=== PATIENT | female | born 1960 | race African-American/Black ===

== ENCOUNTER 2017-08-21 18:36 | Emergency (ER) | payer MEDICARE, OTHER ==
[~2017-08-21] VITALS: Ht 177.8 cm; Wt 100.0 kg
[~2017-08-21 18:36] MED LIST: ADV100 IH; ALBU8.5H8 IH; AMLO-512 PO; ESZO3 PO; FENT1PAT4 TD; GABA-531 PO; LEVE500T53 PO; OMEP20 PO; PREM3 PO
[2017-08-21] MEDS ORDERED: MORP10CA8 PO (18:53)
[2017-08-21] MEDS ORDERED: HYDR2I SQ (18:57)
[2017-08-21] MEDS ORDERED: FENT-76 SQ (18:57)
[2017-08-21] MEDS ORDERED: METHOCARBAMOL 500 MG TABLET PO ONE (20:00)
[2017-08-21 20:02] VITALS: BP 156/78
== END 2017-08-21 20:49 | disposition home or self-care (01) ==
LOC: EMS 18:36
DX: M54.2 Cervicalgia (principal); I10 Essential (primary) hypertension; I25.2 Old myocardial infarction; K21.9 Gastro-esophageal reflux disease without esophagitis; F17.210 Nicotine dependence, cigarettes, uncomplicated; Z88.5 Allergy status to narcotic agent
CPT/HCPCS: 99283

== ENCOUNTER 2021-10-25 13:09 | Emergency (ER) | payer MEDICARE, OTHER ==
[~2021-10-25] VITALS: Ht 177.8 cm; Wt 118.2 kg
[~2021-10-25 13:09] MED LIST changes: -ADV100 IH; +AMLO-258 PO; -AMLO-512 PO; +FENT-76 SQ; -FENT1PAT4 TD; +FLUT1DIS4 IH; +GABA-1181 PO; -GABA-531 PO; +HYDR2I SQ; +LEVE500T20 PO; -LEVE500T53 PO; +MORP10CA8 PO
[2021-10-25 13:41] VITALS: BP 149/87
[2021-10-25] MEDS ORDERED: OXYC-490 PO (15:38)
[2021-10-25] MEDS ORDERED: PRED-554 PO (15:42)
[2021-10-25] MEDS ORDERED: MOXI3DRO27 OD (15:43)
== END 2021-10-25 16:02 | disposition home or self-care (01) ==
LOC: EMS 13:11
DX: H10.89 Other conjunctivitis (principal); H10.11 Acute atopic conjunctivitis, right eye; F41.9 Anxiety disorder, unspecified; M19.90 Unspecified osteoarthritis, unspecified site; F31.9 Bipolar disorder, unspecified; I10 Essential (primary) hypertension; M41.9 Scoliosis, unspecified; F17.210 Nicotine dependence, cigarettes, uncomplicated; Z86.2 Personal history of diseases of the blood and blood-forming organs and certain disorders involving the immune mechanism; Z87.19 Personal history of other diseases of the digestive system; Z86.79 Personal history of other diseases of the circulatory system; Z86.69 Personal history of other diseases of the nervous system and sense organs; Z87.39 Personal history of other diseases of the musculoskeletal system and connective tissue; Z98.51 Tubal ligation status; Z96.641 Presence of right artificial hip joint; Z96.651 Presence of right artificial knee joint
CPT/HCPCS: 99283; Z7502

== ENCOUNTER 2021-12-13 08:04 | Day surgery (SDC) | payer MEDICARE, OTHER ==
[2021-12-12 12:35] LABS: COVID AG,FIA SOURCE NASOPHARYNGEAL
[~2021-12-13] VITALS: Ht 177.8 cm; Wt 118.2 kg
[~2021-12-13 08:04] MED LIST changes: -ALBU8.5H8 IH; +AMLO-257 PO; -AMLO-258 PO; +APIX5TAB PO; -ESZO3 PO; -FENT-76 SQ; +FLUT1BLS10 IH; -FLUT1DIS4 IH; -GABA-1181 PO; +GUAIF10 PO; -HYDR2I SQ; +IPRA4AER IH; -LEVE500T20 PO; +LEVE750T10 PO; +MONT-35 PO; -MORP10CA8 PO; +NICO-703 TD; -OMEP20 PO; +OXYC-618 PO; +PREG75CA75 PO; -PREM3 PO; +SODIUM CHLORIDE 0.9% 1,000 ML IV ONE
[2021-12-13] MEDS ORDERED: LIDOCAINE/PF 2% 5 ML VIAL IM ONE (08:05)
[2021-12-13] MEDS ORDERED: PROPOFOL 1% 20 ML VIAL IVP ONE (08:05)
[2021-12-13] MEDS ORDERED: PRED-554 PO (08:18)
[2021-12-13] MEDS ORDERED: MONT-40 PO (09:11)
[2021-12-13] MEDS ORDERED: AMLO5TAB66 PO (09:11)
[2021-12-13] MEDS ORDERED: APIX5TAB PO (09:12)
[2021-12-13] MEDS ORDERED: OXYGEN THERAPY IH SCH (20:00)
[2021-12-19] MEDS ORDERED: IPRA4AER IH (12:09)
[2022-02-09] MEDS ORDERED: APIX5TAB PO (13:59)
[2022-02-11] MEDS ORDERED: LEVE500T20 PO (14:32)
[2022-02-11] MEDS ORDERED: PRED-554 PO ×2 (14:32)
[2022-02-11] MEDS ORDERED: OXCA300T57 PO (14:32)
[2022-02-11] MEDS ORDERED: DILT30TA3 PO (14:32)
[2022-02-11] MEDS ORDERED: PRED-549 PO (14:32)
== END 2021-12-13 11:15 | disposition home or self-care (01) ==
LOC: SURGERY 08:04
PROVIDERS: ATTEND Specialist
DX: R94.8 Abnormal results of function studies of other organs and systems (principal); K57.30 Diverticulosis of large intestine without perforation or abscess without bleeding; K63.5 Polyp of colon; Z79.899 Other long term (current) drug therapy; Z98.890 Other specified postprocedural states; J44.9 Chronic obstructive pulmonary disease, unspecified; Z86.711 Personal history of pulmonary embolism; Z90.710 Acquired absence of both cervix and uterus; M19.90 Unspecified osteoarthritis, unspecified site; Z80.0 Family history of malignant neoplasm of digestive organs
CPT/HCPCS: 88305; 93005; J2704; J3490

== ENCOUNTER → 2021-12-19 | Outpatient (CLI) | payer MEDICARE, OTHER ==
[~2021-12-19] VITALS: Ht 177.8 cm; Wt 113.5 kg
[~2021-12-19] MED LIST changes: -AMLO-257 PO; +AMLO5TAB66 PO; -GUAIF10 PO; -MONT-35 PO; +MONT-40 PO; -OXYC-618 PO; -SODIUM CHLORIDE 0.9% 1,000 ML IV ONE
[2021-12-19 13:35] VITALS: BP 140/68
== END | disposition home or self-care (01) ==
LOC: SRCNTR 11:38
PROVIDERS: ATTEND Internal Medicine
DX: I10 Essential (primary) hypertension (principal); Z09 Encounter for follow-up examination after completed treatment for conditions other than malignant neoplasm; J44.9 Chronic obstructive pulmonary disease, unspecified; M54.50 Low back pain, unspecified; I48.20 Chronic atrial fibrillation, unspecified; J96.90 Respiratory failure, unspecified, unspecified whether with hypoxia or hypercapnia; F17.200 Nicotine dependence, unspecified, uncomplicated; Z99.81 Dependence on supplemental oxygen
CPT/HCPCS: G0463; Z7500

== ENCOUNTER → 2022-02-05 | Outpatient (CLI) | payer MEDICARE, OTHER ==
[2022-02-05 10:07] VITALS: BP 141/82
== END | disposition home or self-care (01) ==
LOC: SRCNTR 09:36
PROVIDERS: ATTEND Internal Medicine
DX: J44.9 Chronic obstructive pulmonary disease, unspecified (principal); I10 Essential (primary) hypertension; E66.9 Obesity, unspecified; I48.91 Unspecified atrial fibrillation; G89.4 Chronic pain syndrome; J96.91 Respiratory failure, unspecified with hypoxia; F17.200 Nicotine dependence, unspecified, uncomplicated; Z99.81 Dependence on supplemental oxygen
CPT/HCPCS: G0463; Z7500

== ENCOUNTER 2022-03-02 11:08 | Emergency (ER) | payer MEDICARE, OTHER ==
[~2022-03-02] VITALS: Ht 177.8 cm; Wt 120.5 kg
[~2022-03-02 11:08] MED LIST changes: -AMLO5TAB66 PO; +DILT30TA3 PO; +LEVE500T20 PO; -LEVE750T10 PO; +OXCA300T57 PO; +PRED-549 PO; +PRED-554 PO
[2022-03-02 14:29] LABS: BASOPHILS % (AUTO) 0.1 % (0.0-2.0); EOSINOPHILS % (AUTO) 0 % (1.0-6.0); HEMATOCRIT 35.2 % (36-46); HEMOGLOBIN 11.6 g/dL (12.0-16.0); LYMPHOCYTES # (AUTO) 0.9 K/uL (1.0-4.8); LYMPHOCYTES % (AUTO) 9.6 % (22.0-44.0); MEAN CORPUSCULAR HEMOGLOBIN 30.7 pg (26.0-34.0); MEAN CORPUSCULAR HGB CONC 32.9 G/dL (31.0-37.0); MEAN CORPUSCULAR VOLUME 93 fL (80-100); MONOCYTES # (AUTO) 0.4 K/uL (0.1-1.0); NEUTROPHILS # (AUTO) 8.2 K/uL (1.8-7.7); PLATELET COUNT (AUTO) 282 K/uL (150-450); RED BLOOD CELL COUNT(AUTO) 3.78 MIL/uL (4.00-5.20); RED CELL DISTRIBUTION WIDTH 14.6 % (11.5-14.5)
[2022-03-02 14:33] LABS: NEUTROPHILS % (AUTO) 86.3 % (40.0-70.0)
[2022-03-02 14:40] LABS: ANION GAP 8 mmol/L (8-16); CALCIUM, TOTAL 9.6 mg/dL (8.8-10.5); CARBON DIOXIDE 26 mmol/L (22-29); CHLORIDE 108 mmol/L (98-107); GLUCOSE,RANDOM 126 mg/dL (70-110); POTASSIUM 3.7 mmol/L (3.5-5.1); SODIUM SERUM 142 mmol/L (136-145); UREA NITROGEN, BLOOD 20 mg/dL (7-18)
[2022-03-02 14:42] LABS: GLOMERULAR FILTR. RATE CALC > 60 mL/min (>60)
[2022-03-02 14:45] LABS: ALANINE AMINOTRANSFERASE 24 U/L (12-78); ALBUMIN 3.4 g/dL (3.4-5.0); ALKALINE PHOSPHATASE 60 U/L (46-116); ASPARTATE AMINOTRANSFERASE 14 U/L (15-37); BILIRUBIN,TOTAL 0.3 mg/dL (0.1-1.0); TOTAL PROTEIN, SERUM 6.6 g/dL (6.4-8.2)
[2022-03-02 15:30] VITALS: BP 147/79
[2022-03-02 15:42] LABS: APPEARANCE,URINE CLEAR (CLEAR); BILIRUBIN,URINE NEGATIVE (NEGATIVE); GLUCOSE, URINE (UA) NEGATIVE (NEGATIVE); KETONES,URINE NEGATIVE (NEGATIVE); LEUKOCYTE ESTERASE ,URINE NEGATIVE (NEGATIVE); NITRATE,URINE NEGATIVE (NEGATIVE); OCCULT BLOOD,URINE NEGATIVE (NEGATIVE); PROTEIN,URINE NEGATIVE (NEGATIVE); SPECIFIC GRAVITIY, URINE 1.014 (1.003-1.030); UROBILINOGEN,URINE <=1.0 mg/dL (<=1.0)
== END 2022-03-02 16:06 | disposition home or self-care (01) ==
LOC: EMS 11:13
DX: R30.0 Dysuria (principal); F31.9 Bipolar disorder, unspecified; F41.9 Anxiety disorder, unspecified; F17.210 Nicotine dependence, cigarettes, uncomplicated; I10 Essential (primary) hypertension; J44.9 Chronic obstructive pulmonary disease, unspecified; K21.9 Gastro-esophageal reflux disease without esophagitis; Z90.89 Acquired absence of other organs; Z96.641 Presence of right artificial hip joint; Z96.651 Presence of right artificial knee joint
CPT/HCPCS: 80053; 81003; 85025; 87491; 87591; 99283; 99284

== ENCOUNTER → 2022-03-06 | Outpatient (CLI) | payer MEDICARE, OTHER ==
[2022-03-06 13:41] VITALS: BP 135/86
== END | disposition home or self-care (01) ==
LOC: SRCNTR 11:27
PROVIDERS: ATTEND Internal Medicine
DX: J44.9 Chronic obstructive pulmonary disease, unspecified (principal); G47.33 Obstructive sleep apnea (adult) (pediatric); R09.02 Hypoxemia; G40.909 Epilepsy, unspecified, not intractable, without status epilepticus
CPT/HCPCS: G0463; Z7500

== ENCOUNTER → 2022-03-22 | Outpatient (CLI) | payer MEDICARE, OTHER ==
[~2022-03-22] MED LIST changes: +ALBU2TAB42 PO; +AMIT10TA6 PO; +AMLO-257 PO; +ATOR40TA71 PO; +CEPH-558 PO; +FLUT1BLS3 IH; +GABA-1181 PO; +LEVE750T10 PO; +MELO-106 PO; +OXYC-38 PO; +OXYC-618 PO; +PHEN-846 PO; +SEMA7TAB2 PO; +TOPI50TA24 PO
[2022-03-22 11:00] VITALS: BP 141/72
== END | disposition home or self-care (01) ==
LOC: SRCNTR 10:27
PROVIDERS: ATTEND Hospitalist
DX: R07.9 Chest pain, unspecified (principal); I10 Essential (primary) hypertension; J44.9 Chronic obstructive pulmonary disease, unspecified; E66.9 Obesity, unspecified; M19.90 Unspecified osteoarthritis, unspecified site; R56.9 Unspecified convulsions
CPT/HCPCS: 93005; G0463

== ENCOUNTER → 2022-05-15 | Outpatient (CLI) | payer MEDICARE, OTHER ==
[~2022-05-15] VITALS: Ht 177.8 cm; Wt 123.0 kg
[~2022-05-15] MED LIST changes: -DILT30TA3 PO; -FLUT1BLS10 IH; -IPRA4AER IH; -LEVE500T20 PO; -OXCA300T57 PO; -OXYC-38 PO; -PRED-549 PO; -PREG75CA75 PO
[2022-05-15 14:57] VITALS: BP 122/75
== END | disposition home or self-care (01) ==
LOC: SRCNTR 14:39
PROVIDERS: ATTEND Internal Medicine
DX: Z09 Encounter for follow-up examination after completed treatment for conditions other than malignant neoplasm (principal); R07.89 Other chest pain; I10 Essential (primary) hypertension; J44.9 Chronic obstructive pulmonary disease, unspecified; K21.9 Gastro-esophageal reflux disease without esophagitis; Z86.711 Personal history of pulmonary embolism; F41.9 Anxiety disorder, unspecified; E78.5 Hyperlipidemia, unspecified; R05.8 Other specified cough; Z99.81 Dependence on supplemental oxygen
CPT/HCPCS: G0463; Z7500

== ENCOUNTER 2022-05-28 10:51 | Inpatient (IN) | payer MEDICARE, OTHER ==
[~2022-05-28] VITALS: Ht 170.2 cm; Wt 126.9 kg
[~2022-05-28 10:51] MED LIST changes: -APIX5TAB PO; -CEPH-558 PO; -NICO-703 TD; -PHEN-846 PO; -PRED-554 PO; -SEMA7TAB2 PO
[2022-05-28] MEDS ORDERED: LORazepam 2 MG/ML VIAL ONE (10:57)
[2022-05-28] MEDS ORDERED: SODIUM CHLORIDE 0.9% 1,000 ML IV ONE (11:15)
[2022-05-28] MEDS ORDERED: LORazepam 2 MG/ML VIAL IVP ONE (11:15)
[2022-05-28] MEDS ORDERED: LevETIRAcetam 1,000 MG in DEXTROSE 5%-WATER 100 ML IV ONE (11:15)
[2022-05-28 11:20] LABS: BASOPHILS % (AUTO) 0.8 % (0.0-2.0); EOSINOPHILS % (AUTO) 4.1 % (1.0-6.0); HEMATOCRIT 37.2 % (36-46); LYMPHOCYTES # (AUTO) 1.9 K/uL (1.0-4.8); LYMPHOCYTES % (AUTO) 31.5 % (22.0-44.0); MEAN CORPUSCULAR HEMOGLOBIN 30.1 pg (26.0-34.0); MEAN CORPUSCULAR HGB CONC 32.3 G/dL (31.0-37.0); MEAN CORPUSCULAR VOLUME 93 fL (80-100); MONOCYTES # (AUTO) 0.6 K/uL (0.1-1.0); MONOCYTES % (AUTO) 9.2 % (2.0-9.0); NEUTROPHILS # (AUTO) 3.3 K/uL (1.8-7.7); NEUTROPHILS % (AUTO) 54.4 % (40.0-70.0); PLATELET COUNT (AUTO) 252 K/uL (150-450); RED BLOOD CELL COUNT(AUTO) 3.98 MIL/uL (4.00-5.20)
[2022-05-28 11:34] LABS: PROTHROMBIN TIME 10.6 SEC (9.4-11.6)
[2022-05-28 11:37] LABS: ANION GAP 10 mmol/L (8-16); CALCIUM, TOTAL 9.1 mg/dL (8.8-10.5); CARBON DIOXIDE 26 mmol/L (22-29); CHLORIDE 108 mmol/L (98-107); CREATININE 0.98 mg/dL (0.60-1.30); GLOMERULAR FILTR. RATE CALC > 60 mL/min (>60); GLUCOSE,RANDOM 101 mg/dL (70-110); POTASSIUM 3.2 mmol/L (3.5-5.1); SODIUM SERUM 144 mmol/L (136-145); UREA NITROGEN, BLOOD 18 mg/dL (7-18)
[2022-05-28 11:43] LABS: ALANINE AMINOTRANSFERASE 23 U/L (12-78); ALBUMIN 3.4 g/dL (3.4-5.0); ALKALINE PHOSPHATASE 67 U/L (46-116); ASPARTATE AMINOTRANSFERASE 20 U/L (15-37); BILIRUBIN,TOTAL 0.4 mg/dL (0.1-1.0); TOTAL PROTEIN, SERUM 6.7 g/dL (6.4-8.2)
[2022-05-28] MEDS ORDERED: POTASSIUM CHL 10 MEQ/WATER 50 ML IV PRN (15:30)
[2022-05-28] MEDS ORDERED: POTASSIUM CHLORIDE 20 MEQ ER TABLET PO PRN (15:30)
[2022-05-28 18:58] VITALS: BP 155/83
[2022-05-28] MEDS ORDERED: ALBUTEROL SULFATE 2.5 MG/0.5 ML NEB SOLUTION NEB PRN ×2 (19:00→19:15)
[2022-05-28] MEDS ORDERED: ACETAMINOPHEN 325 MG TABLET PO PRN (19:15)
[2022-05-28] MEDS ORDERED: HYDROCODONE/ACETAMINOPHEN 5-325 MG TABLET PO PRN (19:15)
[2022-05-28] MEDS ORDERED: MORPHINE SULFATE 2 MG/ML SYRINGE IVP PRN (19:15)
[2022-05-28] MEDS ORDERED: OxyCODONE HCL/ACETAMINOPHEN 10-325 MG TABLET PO PRN (19:15)
[2022-05-28] MEDS ORDERED: MAGNESIUM HYDROXIDE SUSPENSION 30 ML UDCUP PO PRN (19:15)
[2022-05-28] MEDS ORDERED: ONDANSETRON HCL 4 MG/2 ML VIAL IVP PRN (19:15)
[2022-05-28] MEDS ORDERED: BISACODYL 10 MG RECTAL RECTAL SUPPOSITORY PR PRN (19:15)
[2022-05-28] MEDS ORDERED: IPRATROPIUM BROMIDE 0.5 MG/2.5 ML NEB SOLUTION NEB PRN (19:15)
[2022-05-28] MEDS ORDERED: ZOLPIDEM TARTRATE 5 MG TABLET PO PRN (19:15)
[2022-05-28] MEDS ORDERED: ESTR42.510 VG (19:32)
[2022-05-28] MEDS: DOCUSATE SODIUM 100 MG CAPSULE PO SCH (20:09)
[2022-05-28] MEDS: TOPIRAMATE 25 MG TABLET PO SCH (20:09)
[2022-05-28] MEDS: AMITRIPTYLINE HCL 10 MG TABLET PO SCH (20:09)
[2022-05-28] MEDS: GABAPENTIN 300 MG CAPSULE PO SCH (20:09)
[2022-05-28] MEDS: LevETIRAcetam 250 MG TABLET PO SCH (20:10)
[2022-05-28 20:38] VITALS: BP 119/71
[2022-05-28] MEDS: HEPARIN SODIUM,PORCINE 5,000 UNITS/ML VIAL SQ SCH (23:33)
[2022-05-29] VITALS (7 sets, daily range): BP systolic 101–143; BP diastolic 67–81
[2022-05-29] MEDS ORDERED: MISC MED-CONVERTED FROM AMBULATORY (Fluticasone/Umeclidin/Vilanter (Trelegy Ellipta 100-62 IH SCH (09:00)
[2022-05-29] MEDS: LevETIRAcetam 250 MG TABLET PO SCH (10:01)
[2022-05-29] MEDS: GABAPENTIN 300 MG CAPSULE PO SCH ×3 (10:02→20:42)
[2022-05-29] MEDS: ATORVASTATIN CALCIUM 40 MG TABLET PO SCH (10:02)
[2022-05-29] MEDS: TOPIRAMATE 25 MG TABLET PO SCH ×2 (10:02→20:42)
[2022-05-29] MEDS: DOCUSATE SODIUM 100 MG CAPSULE PO SCH ×2 (10:02→20:43)
[2022-05-29] MEDS: AmLODIPine BESYLATE 5 MG TABLET PO SCH (10:02)
[2022-05-29] MEDS: HEPARIN SODIUM,PORCINE 5,000 UNITS/ML VIAL SQ SCH ×3 (10:03→23:44)
[2022-05-29] MEDS: PANTOPRAZOLE SODIUM 40 MG/VIAL IVP SCH (10:03)
[2022-05-29] MEDS: MONTELUKAST SODIUM 10 MG TABLET PO SCH (10:31)
[2022-05-29] MEDS: LevETIRAcetam 500 MG TABLET PO SCH (20:42)
[2022-05-29] MEDS: AMITRIPTYLINE HCL 10 MG TABLET PO SCH (21:26)
[2022-05-30 04:49] VITALS: BP 134/71
[2022-05-30 07:39] VITALS: BP 128/75
[2022-05-30] MEDS: PANTOPRAZOLE SODIUM 40 MG/VIAL IVP SCH (08:47)
[2022-05-30] MEDS: HEPARIN SODIUM,PORCINE 5,000 UNITS/ML VIAL SQ SCH ×2 (08:48→15:53)
[2022-05-30] MEDS: GABAPENTIN 300 MG CAPSULE PO SCH ×2 (08:48→15:52)
[2022-05-30] MEDS: LevETIRAcetam 500 MG TABLET PO SCH (08:48)
[2022-05-30] MEDS: ATORVASTATIN CALCIUM 40 MG TABLET PO SCH (08:48)
[2022-05-30] MEDS: AmLODIPine BESYLATE 5 MG TABLET PO SCH (08:48)
[2022-05-30] MEDS: MONTELUKAST SODIUM 10 MG TABLET PO SCH (08:50)
[2022-05-30] MEDS: DOCUSATE SODIUM 100 MG CAPSULE PO SCH (09:00)
[2022-05-30] MEDS: TOPIRAMATE 25 MG TABLET PO SCH (10:38)
[2022-05-30 11:10] VITALS: BP 116/76
[2022-05-30 16:05] VITALS: BP 104/61
[2022-05-30] MEDS ORDERED: LEVE500T8 PO (17:55)
[2022-06-01] MEDS ORDERED: LEVE500T20 PO (10:31)
== END 2022-05-30 18:35 | disposition home or self-care (01) | DRG 101 ==
LOC: EMS 10:58 → 5S 17:02
PROVIDERS: ADMIT Hospitalist; ATTEND Hospitalist
PROC: 5A09357 Assistance with Respiratory Ventilation, Less than 24 Consecutive Hours, Continuous Positive Airway Pressure (ICD-10-PCS; principal; 2022-05-29)
DX: G40.901 Epilepsy, unspecified, not intractable, with status epilepticus (principal); Z68.41 Body mass index [BMI] 40.0-44.9, adult; I10 Essential (primary) hypertension; J44.9 Chronic obstructive pulmonary disease, unspecified; E87.6 Hypokalemia; F41.9 Anxiety disorder, unspecified; K21.9 Gastro-esophageal reflux disease without esophagitis; M19.90 Unspecified osteoarthritis, unspecified site; Z96.659 Presence of unspecified artificial knee joint; F31.9 Bipolar disorder, unspecified; Z96.641 Presence of right artificial hip joint; G47.33 Obstructive sleep apnea (adult) (pediatric); M79.18 Myalgia, other site; E66.01 Morbid (severe) obesity due to excess calories; Z72.0 Tobacco use; Z82.5 Family history of asthma and other chronic lower respiratory diseases; Z82.49 Family history of ischemic heart disease and other diseases of the circulatory system
CPT/HCPCS: 51702; 70450; 71045; 80053; 84132; 84484; 85025; 85610; 85730; 93005; 94640; 94660; 99285; C9113; J0712; J1644; J2060; J2270; J7060; 36415-L1; 36415-TC

== ENCOUNTER → 2022-06-01 | Outpatient (CLI) | payer MEDICARE, OTHER ==
[~2022-06-01] MED LIST changes: +ESTR42.510 VG; +LEVE500T20 PO; +LEVE500T8 PO; -LEVE750T10 PO
[2022-06-01 10:20] VITALS: BP 140/73
== END | disposition home or self-care (01) ==
LOC: SRCNTR 09:46
PROVIDERS: ATTEND Hospitalist
DX: Z09 Encounter for follow-up examination after completed treatment for conditions other than malignant neoplasm (principal); I10 Essential (primary) hypertension; E78.5 Hyperlipidemia, unspecified; G40.909 Epilepsy, unspecified, not intractable, without status epilepticus; E66.01 Morbid (severe) obesity due to excess calories; Z72.0 Tobacco use
CPT/HCPCS: G0463; Z7500

== ENCOUNTER 2022-07-20 11:02 | Emergency (ER) | payer MEDICARE, OTHER ==
[~2022-07-20] VITALS: Ht 177.8 cm; Wt 100.0 kg
[~2022-07-20 11:02] MED LIST changes: +ALBU2 PO; -ALBU2TAB42 PO; +TOPI-255 PO; -TOPI50TA24 PO
[2022-07-20 13:33] LABS: BASOPHILS % (AUTO) 0.4 % (0.0-2.0); EOSINOPHILS % (AUTO) 3.1 % (1.0-6.0); HEMATOCRIT 37.9 % (36-46); HEMOGLOBIN 12.2 g/dL (12.0-16.0); LYMPHOCYTES # (AUTO) 1.1 K/uL (1.0-4.8); MEAN CORPUSCULAR HGB CONC 32.1 G/dL (31.0-37.0); MEAN CORPUSCULAR VOLUME 93 fL (80-100); MONOCYTES # (AUTO) 0.5 K/uL (0.1-1.0); MONOCYTES % (AUTO) 8.8 % (2.0-9.0); NEUTROPHILS # (AUTO) 3.9 K/uL (1.8-7.7); NEUTROPHILS % (AUTO) 68.7 % (40.0-70.0); PLATELET COUNT (AUTO) 230 K/uL (150-450); RED BLOOD CELL COUNT(AUTO) 4.06 MIL/uL (4.00-5.20); RED CELL DISTRIBUTION WIDTH 14.2 % (11.5-14.5)
[2022-07-20 13:50] LABS: ANION GAP 10 mmol/L (8-16); CALCIUM, TOTAL 9.4 mg/dL (8.8-10.5); CARBON DIOXIDE 25 mmol/L (22-29); CHLORIDE 106 mmol/L (98-107); CREATININE 0.82 mg/dL (0.60-1.30); GLOMERULAR FILTR. RATE CALC > 60 mL/min (>60); GLUCOSE,RANDOM 116 mg/dL (70-110); POTASSIUM 3.7 mmol/L (3.5-5.1); SODIUM SERUM 141 mmol/L (136-145); UREA NITROGEN, BLOOD 16 mg/dL (7-18)
[2022-07-20 13:56] LABS: ALANINE AMINOTRANSFERASE 26 U/L (12-78); ALBUMIN 3.5 g/dL (3.4-5.0); ALKALINE PHOSPHATASE 73 U/L (46-116); ASPARTATE AMINOTRANSFERASE 29 U/L (15-37); BILIRUBIN,TOTAL 0.4 mg/dL (0.1-1.0); LACTIC ACID 1.2 mmol/L (0.4-2.0); TOTAL PROTEIN, SERUM 7.2 g/dL (6.4-8.2)
[2022-07-20 14:36] VITALS: BP 137/76
[2022-07-21] MEDS ORDERED: BUPR75FI3 BU (15:47)
[2022-07-21] MEDS ORDERED: AMIT25TA9 PO (15:47)
[2022-07-21] MEDS ORDERED: DOCU100C33 PO (15:47)
[2022-07-21] MEDS ORDERED: CYCL10TA16 PO (15:52)
== END 2022-07-20 15:40 | disposition still patient (30) ==
LOC: EMS 11:02
DX: O74.6 Other complications of spinal and epidural anesthesia during labor and delivery (principal); R56.9 Unspecified convulsions; J44.9 Chronic obstructive pulmonary disease, unspecified; F41.9 Anxiety disorder, unspecified; M19.90 Unspecified osteoarthritis, unspecified site; J45.909 Unspecified asthma, uncomplicated; F31.9 Bipolar disorder, unspecified; I10 Essential (primary) hypertension; F17.210 Nicotine dependence, cigarettes, uncomplicated; Z90.49 Acquired absence of other specified parts of digestive tract; Z98.51 Tubal ligation status; Z96.651 Presence of right artificial knee joint; Z98.890 Other specified postprocedural states
CPT/HCPCS: 80053; 83605; 85025; 86140; 93005; 99284

== ENCOUNTER 2022-08-05 14:52 | Emergency (ER) | payer MEDICARE, OTHER ==
[~2022-08-05] VITALS: Ht 177.8 cm; Wt 109.1 kg
[~2022-08-05 14:52] MED LIST changes: -AMIT10TA6 PO; +AMIT25TA9 PO; -ESTR42.510 VG; -LEVE500T20 PO; -MELO-106 PO; -OXYC-618 PO
[2022-08-05] MEDS ORDERED: VANCOMYCIN 1GM/WATER(PEG/NADA) 200 ML IV ONE (15:15)
[2022-08-05] MEDS ORDERED: VANCOMYCIN HCL 1 GM/D5% WATER 200 ML IV ONE (15:30)
[2022-08-05 17:55] VITALS: BP 131/77
== END 2022-08-05 18:03 | disposition home or self-care (01) ==
LOC: EMS 14:55
DX: R78.81 Bacteremia (principal); F41.9 Anxiety disorder, unspecified; M19.90 Unspecified osteoarthritis, unspecified site; J45.909 Unspecified asthma, uncomplicated; F31.9 Bipolar disorder, unspecified; J44.9 Chronic obstructive pulmonary disease, unspecified; I10 Essential (primary) hypertension; Z90.49 Acquired absence of other specified parts of digestive tract; Z98.51 Tubal ligation status; Z96.641 Presence of right artificial hip joint; Z96.651 Presence of right artificial knee joint
CPT/HCPCS: 99284; 96365; J3370; Q9967

== ENCOUNTER → 2022-08-23 | Outpatient (CLI) | payer MEDICARE, OTHER ==
[~2022-08-23] MED LIST changes: +AMMO225L14 TP; +METH4TAB3 PO
[2022-08-23 11:05] VITALS: BP 130/76
== END | disposition home or self-care (01) ==
LOC: SRCNTR 10:51
PROVIDERS: ATTEND Hospitalist
DX: I10 Essential (primary) hypertension (principal); J44.9 Chronic obstructive pulmonary disease, unspecified; M19.93 Secondary osteoarthritis, unspecified site; E66.01 Morbid (severe) obesity due to excess calories; G89.29 Other chronic pain; G47.30 Sleep apnea, unspecified; N17.9 Acute kidney failure, unspecified; E46 Unspecified protein-calorie malnutrition; A41.9 Sepsis, unspecified organism; G03.0 Nonpyogenic meningitis
CPT/HCPCS: G0463; Z7500

== ENCOUNTER → 2022-09-06 | Outpatient (CLI) | payer MEDICARE, OTHER ==
[2022-09-06 13:55] LABS: APPEARANCE,URINE CLEAR (CLEAR); BILIRUBIN,URINE NEGATIVE (NEGATIVE); GLUCOSE, URINE (UA) NEGATIVE (NEGATIVE); KETONES,URINE NEGATIVE (NEGATIVE); LEUKOCYTE ESTERASE ,URINE SMALL (NEGATIVE); NITRATE,URINE NEGATIVE (NEGATIVE); OCCULT BLOOD,URINE NEGATIVE (NEGATIVE); PH,URINE 6.5 (5.0-8.0); PROTEIN,URINE NEGATIVE (NEGATIVE); UROBILINOGEN,URINE <=1.0 mg/dL (<=1.0)
[2022-09-06 14:07] LABS: BACTERIA,URINE None Seen /HPF (None Seen); RBC,URINE None Seen /HPF (0-2); SQUAMOUS EPITHELIAL CELL,UR Moderate /LPF (None Seen)
[2022-09-06 14:27] LABS: ALANINE AMINOTRANSFERASE 22 U/L (12-78); ALBUMIN 3.8 g/dL (3.4-5.0); ALKALINE PHOSPHATASE 67 U/L (46-116); ANION GAP 12 mmol/L (8-16); ASPARTATE AMINOTRANSFERASE 27 U/L (15-37); BILIRUBIN,TOTAL 0.5 mg/dL (0.1-1.0); C-REACTIVE PROTEIN QUANT 2.09 mg/dL (0.00-0.30); CALCIUM, TOTAL 9.6 mg/dL (8.8-10.5); CARBON DIOXIDE 22 mmol/L (22-29); CHLORIDE 106 mmol/L (98-107); CREATININE 0.96 mg/dL (0.60-1.30); GLOMERULAR FILTR. RATE CALC > 60 mL/min (>60); GLUCOSE,RANDOM 91 mg/dL (70-110); POTASSIUM 4.1 mmol/L (3.5-5.1); SODIUM SERUM 140 mmol/L (136-145); THYROID STIMULATING HORMONE 0.65 uIU/mL (0.36-3.74); TOTAL PROTEIN, SERUM 7.7 g/dL (6.4-8.2); UREA NITROGEN, BLOOD 20 mg/dL (7-18)
[2022-09-06 14:34] LABS: PROTHROMBIN TIME 10.3 SEC (9.4-11.6)
[2022-09-07 12:18] LABS: BASOPHILS % (AUTO) 0.8 % (0.0-2.0); EOSINOPHILS % (AUTO) 4.2 % (1.0-6.0); HEMATOCRIT 36.4 % (36-46); HEMOGLOBIN 11.9 g/dL (12.0-16.0); LYMPHOCYTES # (AUTO) 1.4 K/uL (1.0-4.8); LYMPHOCYTES % (AUTO) 22.4 % (22.0-44.0); MEAN CORPUSCULAR HEMOGLOBIN 30.1 pg (26.0-34.0); MEAN CORPUSCULAR HGB CONC 32.6 G/dL (31.0-37.0); MEAN CORPUSCULAR VOLUME 92 fL (80-100); MONOCYTES # (AUTO) 0.5 K/uL (0.1-1.0); MONOCYTES % (AUTO) 7.4 % (2.0-9.0); NEUTROPHILS # (AUTO) 4.2 K/uL (1.8-7.7); NEUTROPHILS % (AUTO) 65.2 % (40.0-70.0); PLATELET COUNT (AUTO) 313 K/uL (150-450); RED BLOOD CELL COUNT(AUTO) 3.94 MIL/uL (4.00-5.20); RED CELL DISTRIBUTION WIDTH 15.2 % (11.5-14.5)
[2022-09-07 13:33] LABS: ERYTHROCYTE SEDIMENTATION RATE 40 MM/HR (0-20)
== END | disposition home or self-care (01) ==
LOC: LABMN 12:42
PROVIDERS: ATTEND Hospitalist
DX: Z01.89 Encounter for other specified special examinations (principal); I10 Essential (primary) hypertension; Z79.899 Other long term (current) drug therapy; Z86.2 Personal history of diseases of the blood and blood-forming organs and certain disorders involving the immune mechanism
CPT/HCPCS: 80053; 81001; 82306; 83036; 84436; 84443; 85025; 85610; 85651; 85730; 86140

== ENCOUNTER → 2022-09-06 | Outpatient (CLI) | payer MEDICARE, OTHER ==
[2022-09-06 11:37] VITALS: BP 134/75
== END | disposition home or self-care (01) ==
LOC: SRCNTR 11:22
PROVIDERS: ATTEND Internal Medicine
DX: G47.33 Obstructive sleep apnea (adult) (pediatric) (principal); J45.909 Unspecified asthma, uncomplicated; A41.9 Sepsis, unspecified organism; E66.9 Obesity, unspecified
CPT/HCPCS: G0463; Z7500

== ENCOUNTER 2022-09-21 11:30 | Emergency (ER) | payer MEDICARE, OTHER ==
[~2022-09-21] VITALS: Ht 162.6 cm; Wt 120.5 kg
[2022-09-21 12:10] LABS: BASOPHILS % (AUTO) 0.8 % (0.0-2.0); EOSINOPHILS % (AUTO) 4.6 % (1.0-6.0); HEMATOCRIT 36.7 % (36-46); HEMOGLOBIN 12.1 g/dL (12.0-16.0); LYMPHOCYTES # (AUTO) 1.2 K/uL (1.0-4.8); LYMPHOCYTES % (AUTO) 24.2 % (22.0-44.0); MEAN CORPUSCULAR HEMOGLOBIN 30.5 pg (26.0-34.0); MEAN CORPUSCULAR VOLUME 92 fL (80-100); MONOCYTES # (AUTO) 0.4 K/uL (0.1-1.0); MONOCYTES % (AUTO) 7.7 % (2.0-9.0); NEUTROPHILS % (AUTO) 62.7 % (40.0-70.0); PLATELET COUNT (AUTO) 248 K/uL (150-450); RED BLOOD CELL COUNT(AUTO) 3.98 MIL/uL (4.00-5.20); RED CELL DISTRIBUTION WIDTH 14.8 % (11.5-14.5)
[2022-09-21 12:18] LABS: ANION GAP 8 mmol/L (8-16); CALCIUM, TOTAL 9.1 mg/dL (8.8-10.5); CARBON DIOXIDE 24 mmol/L (22-29); CHLORIDE 110 mmol/L (98-107); CREATININE 1.03 mg/dL (0.60-1.30); GLOMERULAR FILTR. RATE CALC > 60 mL/min (>60); GLUCOSE,RANDOM 119 mg/dL (70-110); POTASSIUM 3.6 mmol/L (3.5-5.1); SODIUM SERUM 142 mmol/L (136-145)
[2022-09-21 12:24] LABS: ALANINE AMINOTRANSFERASE 21 U/L (12-78); ALBUMIN 3.4 g/dL (3.4-5.0); ALKALINE PHOSPHATASE 75 U/L (46-116); ASPARTATE AMINOTRANSFERASE 21 U/L (15-37); BILIRUBIN,TOTAL 0.3 mg/dL (0.1-1.0); TOTAL PROTEIN, SERUM 7.3 g/dL (6.4-8.2)
[2022-09-21] MEDS ORDERED: IBUPROFEN 600 MG TABLET PO ONE (14:00)
[2022-09-21 15:49] VITALS: BP 133/70
== END 2022-09-21 15:53 | disposition home or self-care (01) ==
LOC: EMS 11:30
DX: R07.89 Other chest pain (principal); M94.0 Chondrocostal junction syndrome [Tietze]; F41.9 Anxiety disorder, unspecified; M19.90 Unspecified osteoarthritis, unspecified site; J45.909 Unspecified asthma, uncomplicated; F31.9 Bipolar disorder, unspecified; J44.9 Chronic obstructive pulmonary disease, unspecified; I10 Essential (primary) hypertension; F17.210 Nicotine dependence, cigarettes, uncomplicated; Z90.49 Acquired absence of other specified parts of digestive tract; Z98.51 Tubal ligation status; Z96.651 Presence of right artificial knee joint; Z96.641 Presence of right artificial hip joint
CPT/HCPCS: 71045; 80053; 84484; 85025; 93005; 99285; 36415-L1; 36415-TC

== ENCOUNTER → 2022-09-21 | Outpatient (CLI) | payer MEDICARE, OTHER | END | disposition home or self-care (01) | LOC: SRCNTR 10:56 | PROVIDERS: ATTEND Hospitalist | DX: R07.9 Chest pain, unspecified (principal); J44.9 Chronic obstructive pulmonary disease, unspecified; I10 Essential (primary) hypertension | CPT/HCPCS: 93005; G0463 ==

== ENCOUNTER → 2022-10-02 | Outpatient (CLI) | payer MEDICARE, OTHER ==
[~2022-10-02] MED LIST changes: +AMIT50TA4 PO
[2022-10-02 13:44] VITALS: BP 155/87
== END | disposition home or self-care (01) ==
LOC: SRCNTR 13:12
PROVIDERS: ATTEND Hospitalist
DX: L29.9 Pruritus, unspecified (principal); J44.9 Chronic obstructive pulmonary disease, unspecified; I10 Essential (primary) hypertension; M19.90 Unspecified osteoarthritis, unspecified site; G89.29 Other chronic pain; F32.A Depression, unspecified; E66.01 Morbid (severe) obesity due to excess calories
CPT/HCPCS: G0463; Z7500

== ENCOUNTER 2023-01-22 10:48 | Emergency (ER) | payer MEDICARE, OTHER ==
[~2023-01-22] VITALS: Ht 177.8 cm; Wt 120.5 kg
[~2023-01-22 10:48] MED LIST changes: -ALBU2 PO; +ALBU2TAB46 PO; -AMIT25TA9 PO
[2023-01-22 11:17] VITALS: TEMP 97.8
[2023-01-22] MEDS ORDERED: KETOROLAC TROMETHAMINE 30 MG/ML VIAL IM ONE (12:15)
[2023-01-22] MEDS ORDERED: [UNRECOGNIZED DRUG - CODE] TD (17:27)
[2023-01-22] MEDS ORDERED: TRAM-559 PO (17:28)
[2023-01-22 17:42] VITALS: BP 131/79; PULSE 76; RESP 19
== END 2023-01-22 17:51 | disposition home or self-care (01) ==
LOC: EMS 10:57
DX: M50.90 Cervical disc disorder, unspecified, unspecified cervical region (principal); J45.909 Unspecified asthma, uncomplicated; R56.9 Unspecified convulsions; J44.9 Chronic obstructive pulmonary disease, unspecified; F41.9 Anxiety disorder, unspecified; F31.9 Bipolar disorder, unspecified; K21.9 Gastro-esophageal reflux disease without esophagitis; I10 Essential (primary) hypertension; I25.2 Old myocardial infarction; F17.210 Nicotine dependence, cigarettes, uncomplicated; Z90.49 Acquired absence of other specified parts of digestive tract; Z98.51 Tubal ligation status; Z88.0 Allergy status to penicillin
CPT/HCPCS: 99285; 72125; 72040; 96372; J1885

== ENCOUNTER → 2023-01-28 | Outpatient (CLI) | payer MEDICARE, OTHER ==
[~2023-01-28] MED LIST changes: +AMIT25TA9 PO; +FLUT1BLS15 IH; +MELO-106 PO; +OXYC-618 PO; +TRAM-559 PO; +[UNRECOGNIZED DRUG - CODE] TD
[2023-01-28 12:18] VITALS: BP 147/72; PULSE 93; RESP 17; TEMP 99.2; O2SAT 97
== END | disposition home or self-care (01) ==
LOC: SRCNTR 11:18
PROVIDERS: ATTEND Hospitalist
DX: J44.9 Chronic obstructive pulmonary disease, unspecified (principal); R07.9 Chest pain, unspecified; R53.83 Other fatigue; I10 Essential (primary) hypertension; G89.29 Other chronic pain; E66.01 Morbid (severe) obesity due to excess calories; F32.A Depression, unspecified; M19.90 Unspecified osteoarthritis, unspecified site; Z88.0 Allergy status to penicillin; Z79.899 Other long term (current) drug therapy
CPT/HCPCS: G0463; Z7500

== ENCOUNTER 2023-02-08 07:53 | Emergency (ER) | payer MEDICARE, OTHER ==
[~2023-02-08] VITALS: Ht 177.8 cm; Wt 118.2 kg
[~2023-02-08 07:53] MED LIST changes: -AMIT50TA4 PO; -AMMO225L14 TP; -FLUT1BLS3 IH; -MELO-106 PO; -METH4TAB3 PO; -OXYC-618 PO
[2023-02-08 08:07] VITALS: TEMP 97.7
[2023-02-08 08:20] LABS: BASOPHILS % (AUTO) 0.7 % (0.0-2.0); EOSINOPHILS % (AUTO) 7.1 % (1.0-6.0); HEMATOCRIT 32.9 % (36-46); HEMOGLOBIN 10.8 g/dL (12.0-16.0); LYMPHOCYTES # (AUTO) 1.2 K/uL (1.0-4.8); MEAN CORPUSCULAR HGB CONC 32.9 G/dL (31.0-37.0); MEAN CORPUSCULAR VOLUME 88 fL (80-100); MONOCYTES # (AUTO) 0.3 K/uL (0.1-1.0); NEUTROPHILS # (AUTO) 3.5 K/uL (1.8-7.7); NEUTROPHILS % (AUTO) 64.2 % (40.0-70.0); PLATELET COUNT (AUTO) 294 K/uL (150-450); RED BLOOD CELL COUNT(AUTO) 3.73 MIL/uL (4.00-5.20); RED CELL DISTRIBUTION WIDTH 15.7 % (11.5-14.5); WHITE BLOOD COUNT (AUTO) 5.5 K/uL (4.5-11.0)
[2023-02-08 09:04] LABS: PROTHROMBIN TIME 10.9 SEC (9.4-11.6)
[2023-02-08 09:09] LABS: ANION GAP 11 mmol/L (8-16); CARBON DIOXIDE 23 mmol/L (22-29); CHLORIDE 108 mmol/L (98-107); CREATININE 0.78 mg/dL (0.60-1.30); GLOMERULAR FILTR. RATE CALC > 60 mL/min (>60); GLUCOSE,RANDOM 101 mg/dL (70-110); POTASSIUM 3.1 mmol/L (3.5-5.1); SODIUM SERUM 142 mmol/L (136-145); TROPONIN I-HIGH SENSITIVITY 7 ng/L (<51); UREA NITROGEN, BLOOD 17 mg/dL (7-18)
[2023-02-08 09:33] LABS: ALANINE AMINOTRANSFERASE 19 U/L (12-78); ALBUMIN 3.2 g/dL (3.4-5.0); ALKALINE PHOSPHATASE 87 U/L (46-116); ASPARTATE AMINOTRANSFERASE 18 U/L (15-37); BILIRUBIN,TOTAL 0.4 mg/dL (0.1-1.0); CREATINE KINASE, TOTAL ONLY 80 U/L (26-192); TOTAL PROTEIN, SERUM 6.9 g/dL (6.4-8.2)
[2023-02-08] MEDS ORDERED: POTASSIUM CHLORIDE 20 MEQ ER TABLET PO ONE (09:45)
[2023-02-08 10:01] LABS: GLUCOMETER DEV NAME(LOC) ERT.5; GLUCOSE,POINT OF CARE 95 MG/DL (70-110)
[2023-02-08 10:03] VITALS: BP 135/78; PULSE 74; RESP 18
[2023-02-08 10:25] LABS: APPEARANCE,URINE CLEAR (CLEAR); BILIRUBIN,URINE NEGATIVE (NEGATIVE); COLOR,URINE LIGHT YELLOW (YELLOW); GLUCOSE, URINE (UA) NEGATIVE (NEGATIVE); KETONES,URINE NEGATIVE (NEGATIVE); LEUKOCYTE ESTERASE ,URINE NEGATIVE (NEGATIVE); NITRATE,URINE NEGATIVE (NEGATIVE); OCCULT BLOOD,URINE NEGATIVE (NEGATIVE); PROTEIN,URINE NEGATIVE (NEGATIVE); SPECIFIC GRAVITIY, URINE 1.017 (1.003-1.030); UROBILINOGEN,URINE <=1.0 mg/dL (<=1.0)
== END 2023-02-08 10:40 | disposition home or self-care (01) ==
LOC: EMS 08:07
DX: G40.909 Epilepsy, unspecified, not intractable, without status epilepticus (principal); F41.9 Anxiety disorder, unspecified; M19.90 Unspecified osteoarthritis, unspecified site; J44.9 Chronic obstructive pulmonary disease, unspecified; E11.9 Type 2 diabetes mellitus without complications; I10 Essential (primary) hypertension; F17.210 Nicotine dependence, cigarettes, uncomplicated; Z90.49 Acquired absence of other specified parts of digestive tract; Z98.51 Tubal ligation status; Z96.641 Presence of right artificial hip joint; Z96.659 Presence of unspecified artificial knee joint
CPT/HCPCS: 71045; 80053; 81003; 82550; 82962; 83880; 84484; 85025; 85610; 85730; 93005; 99285; 36415-L1; 36415-TC

== ENCOUNTER 2023-02-28 13:38 | Emergency (ER) | payer MEDICARE, OTHER ==
[~2023-02-28] VITALS: Ht 165.1 cm; Wt 75.0 kg
[2023-02-28 13:57] VITALS: TEMP 98.6
[2023-02-28 15:17] LABS: BASOPHILS % (AUTO) 0.8 % (0.0-2.0); EOSINOPHILS % (AUTO) 5.7 % (1.0-6.0); HEMATOCRIT 31.5 % (36-46); HEMOGLOBIN 10.4 g/dL (12.0-16.0); LYMPHOCYTES # (AUTO) 1.1 K/uL (1.0-4.8); LYMPHOCYTES % (AUTO) 24.8 % (22.0-44.0); MEAN CORPUSCULAR HGB CONC 32.9 G/dL (31.0-37.0); MEAN CORPUSCULAR VOLUME 88 fL (80-100); MONOCYTES # (AUTO) 0.3 K/uL (0.1-1.0); MONOCYTES % (AUTO) 7.3 % (2.0-9.0); NEUTROPHILS # (AUTO) 2.8 K/uL (1.8-7.7); NEUTROPHILS % (AUTO) 61.4 % (40.0-70.0); PLATELET COUNT (AUTO) 254 K/uL (150-450); RED BLOOD CELL COUNT(AUTO) 3.57 MIL/uL (4.00-5.20); RED CELL DISTRIBUTION WIDTH 16.1 % (11.5-14.5); WHITE BLOOD COUNT (AUTO) 4.6 K/uL (4.5-11.0)
[2023-02-28 15:19] LABS: ANION GAP 11 mmol/L (8-16); CALCIUM, TOTAL 9.1 mg/dL (8.8-10.5); CARBON DIOXIDE 24 mmol/L (22-29); CHLORIDE 108 mmol/L (98-107); CREATININE 0.83 mg/dL (0.60-1.30); GLOMERULAR FILTR. RATE CALC > 60 mL/min (>60); GLUCOSE,RANDOM 81 mg/dL (70-110); POTASSIUM 3.4 mmol/L (3.5-5.1); SODIUM SERUM 143 mmol/L (136-145); UREA NITROGEN, BLOOD 18 mg/dL (7-18)
[2023-02-28 15:25] LABS: ALANINE AMINOTRANSFERASE 18 U/L (12-78); ALBUMIN 3.1 g/dL (3.4-5.0); ALKALINE PHOSPHATASE 73 U/L (46-116); ASPARTATE AMINOTRANSFERASE 21 U/L (15-37); BILIRUBIN,TOTAL 0.5 mg/dL (0.1-1.0)
[2023-02-28 15:26] LABS: TROPONIN I-HIGH SENSITIVITY 7 ng/L (<51)
[2023-02-28] MEDS ORDERED: LIDOCAINE 5% TRANSDERMAL PATCH TD ONE (21:00)
[2023-02-28] MEDS ORDERED: HYDROCODONE/ACETAMINOPHEN 5-325 MG TABLET PO ONE (21:00)
[2023-02-28 21:58] VITALS: BP 121/88; PULSE 72; RESP 12
[2023-03-06] MEDS ORDERED: BENZ-227 PO (13:01)
== END 2023-02-28 22:05 | disposition home or self-care (01) ==
LOC: EMS 13:45
DX: S09.90XA Unspecified injury of head, initial encounter (principal); R42 Dizziness and giddiness; F41.9 Anxiety disorder, unspecified; M19.90 Unspecified osteoarthritis, unspecified site; J44.9 Chronic obstructive pulmonary disease, unspecified; F31.9 Bipolar disorder, unspecified; E11.9 Type 2 diabetes mellitus without complications; I10 Essential (primary) hypertension; F17.210 Nicotine dependence, cigarettes, uncomplicated; Z98.51 Tubal ligation status; Z90.49 Acquired absence of other specified parts of digestive tract; Z96.641 Presence of right artificial hip joint; Z96.659 Presence of unspecified artificial knee joint; Z88.8 Allergy status to other drugs, medicaments and biological substances; X58.XXXA Exposure to other specified factors, initial encounter; Y93.89 Activity, other specified; Y92.89 Other specified places as the place of occurrence of the external cause; Y99.8 Other external cause status
CPT/HCPCS: 70450; 72125; 80053; 84484; 85025; 93005; 99284

== ENCOUNTER → 2023-03-06 | Outpatient (CLI) | payer MEDICARE, OTHER ==
[~2023-03-06] MED LIST changes: +BENZ-227 PO; -TOPI-255 PO; +TOPI-97 PO
[2023-03-06 12:01] VITALS: BP 147/80; PULSE 75; RESP 18; TEMP 98.1; O2SAT 98
== END | disposition home or self-care (01) ==
LOC: SRCNTR 11:18
PROVIDERS: ATTEND Hospitalist
DX: Z09 Encounter for follow-up examination after completed treatment for conditions other than malignant neoplasm (principal); I10 Essential (primary) hypertension; J44.9 Chronic obstructive pulmonary disease, unspecified; K21.9 Gastro-esophageal reflux disease without esophagitis; F41.9 Anxiety disorder, unspecified; R56.9 Unspecified convulsions; F31.9 Bipolar disorder, unspecified; M19.90 Unspecified osteoarthritis, unspecified site; E66.01 Morbid (severe) obesity due to excess calories; M54.2 Cervicalgia; M25.519 Pain in unspecified shoulder
CPT/HCPCS: G0463

== ENCOUNTER 2023-03-21 07:21 | Inpatient (IN) | payer MEDICARE, OTHER ==
[2023-03-21] VITALS (17 sets, daily range): BP systolic 99–134; BP diastolic 59–70; PULSE 75–108; RESP 18–32; TEMP 97.9–98.5; O2SAT 95–100
[~2023-03-21] VITALS: Ht 152.4 cm; Wt 112.2 kg
[2023-03-21] MEDS ORDERED: MethylPREDNISolone SOD SUCC 125 MG/2 ML VIAL IVP ONE (07:30)
[2023-03-21] MEDS ORDERED: IPRATROPIUM BROMIDE 0.5 MG/2.5 ML NEB SOLUTION NEB ONE (07:30)
[2023-03-21] MEDS ORDERED: ALBUTEROL SULFATE 2.5 MG/0.5 ML 5 ML NEB SOLUTION NEB ONE ×2 (07:30→09:00)
[2023-03-21 08:19] LABS: BASOPHILS % (AUTO) 0.4 % (0.0-2.0); EOSINOPHILS % (AUTO) 0.5 % (1.0-6.0); HEMATOCRIT 31.4 % (36-46); HEMOGLOBIN 10.4 g/dL (12.0-16.0); LYMPHOCYTES % (AUTO) 22.1 % (22.0-44.0); MEAN CORPUSCULAR HEMOGLOBIN 29.4 pg (26.0-34.0); MEAN CORPUSCULAR HGB CONC 33.2 G/dL (31.0-37.0); MEAN CORPUSCULAR VOLUME 88 fL (80-100); MONOCYTES # (AUTO) 0.6 K/uL (0.1-1.0); MONOCYTES % (AUTO) 6.1 % (2.0-9.0); NEUTROPHILS # (AUTO) 6.6 K/uL (1.8-7.7); NEUTROPHILS % (AUTO) 70.9 % (40.0-70.0); PLATELET COUNT (AUTO) 300 K/uL (150-450); RED BLOOD CELL COUNT(AUTO) 3.55 MIL/uL (4.00-5.20); RED CELL DISTRIBUTION WIDTH 16.3 % (11.5-14.5); WHITE BLOOD COUNT (AUTO) 9.3 K/uL (4.5-11.0)
[2023-03-21 08:29] LABS: ANION GAP 10 mmol/L (8-16); CALCIUM, TOTAL 9.2 mg/dL (8.8-10.5); CARBON DIOXIDE 23 mmol/L (22-29); CHLORIDE 107 mmol/L (98-107); CREATININE 0.91 mg/dL (0.60-1.30); GLOMERULAR FILTR. RATE CALC > 60 mL/min (>60); GLUCOSE,RANDOM 113 mg/dL (70-110); POTASSIUM 3.3 mmol/L (3.5-5.1); SODIUM SERUM 140 mmol/L (136-145); UREA NITROGEN, BLOOD 18 mg/dL (7-18)
[2023-03-21 08:32] LABS: B-TYPE NATRIURETIC PEPTIDE 21 pg/mL (0-100)
[2023-03-21 08:37] LABS: TROPONIN I-HIGH SENSITIVITY 7 ng/L (<51)
[2023-03-21 08:55] LABS: ALANINE AMINOTRANSFERASE 17 U/L (12-78); ALBUMIN 3.3 g/dL (3.4-5.0); ALKALINE PHOSPHATASE 96 U/L (46-116); ASPARTATE AMINOTRANSFERASE 17 U/L (15-37); BILIRUBIN,TOTAL 0.3 mg/dL (0.1-1.0); CREATINE KINASE, TOTAL ONLY 83 U/L (26-192); TOTAL PROTEIN, SERUM 7.5 g/dL (6.4-8.2)
[2023-03-21] MEDS ORDERED: ONDANSETRON HCL 4 MG/2 ML VIAL IVP PRN ×2 (09:30→13:00)
[2023-03-21] MEDS ORDERED: ACETAMINOPHEN 325 MG TABLET PO PRN ×2 (09:30→13:00)
[2023-03-21] MEDS ORDERED: 0.9% SODIUM CHLORIDE 10 ML SYRINGE IVP PRN (09:30)
[2023-03-21 09:49] LABS: COVID AG,FIA SOURCE NASAL SWAB
[2023-03-21 10:16] LABS: INFLUENZA TYPE A NEGATIVE FOR TYPE A (NEGATIVE); INFLUENZA TYPE B NEGATIVE FOR TYPE B (NEGATIVE); SARS-COV2 (COVID) ANTIGEN,FIA Negative (Negative)
[2023-03-21] MEDS ORDERED: MethylPREDNISolone SOD SUCC 125 MG/2 ML VIAL IVP SCH (12:30)
[2023-03-21] MEDS ORDERED: BISACODYL 10 MG RECTAL RECTAL SUPPOSITORY PR PRN (13:00)
[2023-03-21] MEDS ORDERED: MORPHINE SULFATE 2 MG/ML SYRINGE IVP PRN (13:00)
[2023-03-21] MEDS ORDERED: MAGNESIUM HYDROXIDE SUSPENSION 30 ML UDCUP PO PRN (13:00)
[2023-03-21] MEDS ORDERED: ZOLPIDEM TARTRATE 5 MG TABLET PO PRN (13:00)
[2023-03-21] MEDS ORDERED: TraMADol HCL 50 MG TABLET PO PRN (13:00)
[2023-03-21] MEDS: AmLODIPine BESYLATE 5 MG TABLET PO SCH (13:27)
[2023-03-21] MEDS: OxyCODONE HCL/ACETAMINOPHEN 5-325 MG TABLET PO PRN (13:57)
[2023-03-21] MEDS: IPRATROPIUM BROMIDE 0.5 MG/2.5 ML NEB SOLUTION NEB SCH ×3 (14:10→23:14)
[2023-03-21] MEDS: ALBUTEROL SULFATE 2.5 MG/0.5 ML NEB SOLUTION NEB SCH ×3 (14:10→23:14)
[2023-03-21] MEDS ORDERED: POTASSIUM CHLORIDE 20 MEQ ER TABLET PO ONE (16:45)
[2023-03-21] MEDS: GABAPENTIN 300 MG CAPSULE PO SCH ×2 (17:09→21:08)
[2023-03-21] MEDS: HEPARIN SODIUM,PORCINE 5,000 UNITS/ML VIAL SQ SCH (17:09)
[2023-03-21] MEDS: BENZONATATE 100 MG CAPSULE PO SCH ×2 (17:09→21:08)
[2023-03-21] MEDS: MethylPREDNISolone SOD SUCC 125 MG/2 ML VIAL IVP SCH (18:42)
[2023-03-21] MEDS: LevETIRAcetam 500 MG TABLET PO SCH (21:07)
[2023-03-21] MEDS: DOCUSATE SODIUM 100 MG CAPSULE PO SCH (21:08)
[2023-03-21] MEDS: TOPIRAMATE 25 MG TABLET PO SCH (21:08)
[2023-03-21] MEDS: AMITRIPTYLINE HCL 25 MG TABLET PO SCH (21:08)
[2023-03-22] VITALS (18 sets, daily range): BP systolic 112–156; BP diastolic 68–88; PULSE 16–120; RESP 16–26; TEMP 97.8–98.5; O2SAT 96–100
[2023-03-22] MEDS: HEPARIN SODIUM,PORCINE 5,000 UNITS/ML VIAL SQ SCH ×4 (00:36→23:44)
[2023-03-22] MEDS: MethylPREDNISolone SOD SUCC 125 MG/2 ML VIAL IVP SCH ×5 (01:22→23:44)
[2023-03-22] MEDS: IPRATROPIUM BROMIDE 0.5 MG/2.5 ML NEB SOLUTION NEB SCH ×6 (02:55→22:55)
[2023-03-22] MEDS: ALBUTEROL SULFATE 2.5 MG/0.5 ML NEB SOLUTION NEB SCH ×6 (02:55→22:55)
[2023-03-22] MEDS: DOCUSATE SODIUM 100 MG CAPSULE PO SCH ×4 (09:00→21:00)
[2023-03-22] MEDS: PANTOPRAZOLE SODIUM 40 MG DR TABLET PO SCH (09:22)
[2023-03-22] MEDS: GABAPENTIN 300 MG CAPSULE PO SCH ×3 (09:23→20:38)
[2023-03-22] MEDS: LevETIRAcetam 500 MG TABLET PO SCH ×2 (09:23→20:37)
[2023-03-22] MEDS: BENZONATATE 100 MG CAPSULE PO SCH ×3 (09:23→20:38)
[2023-03-22] MEDS: -LIDODERM PATCH NOTE- MISC SCH (09:23)
[2023-03-22] MEDS: ATORVASTATIN CALCIUM 40 MG TABLET PO SCH (09:23)
[2023-03-22] MEDS: AmLODIPine BESYLATE 5 MG TABLET PO SCH (09:23)
[2023-03-22] MEDS: MONTELUKAST SODIUM 10 MG TABLET PO SCH (09:23)
[2023-03-22] MEDS: TOPIRAMATE 25 MG TABLET PO SCH ×2 (09:24→21:39)
[2023-03-22] MEDS ORDERED: ALBUTEROL SULFATE 2.5 MG/0.5 ML 5 ML NEB SOLUTION NEB ONE (09:45)
[2023-03-22] MEDS ORDERED: IPRATROPIUM BROMIDE 0.5 MG/2.5 ML NEB SOLUTION NEB ONE (09:45)
[2023-03-22] MEDS ORDERED: ALBUTEROL SULFATE 2.5 MG/0.5 ML NEB SOLUTION NEB ONE (10:00)
[2023-03-22 10:11] LABS: BASOPHILS % (AUTO) 0.3 % (0.0-2.0); EOSINOPHILS % (AUTO) 1.1 % (1.0-6.0); HEMATOCRIT 33.1 % (36-46); HEMOGLOBIN 10.8 g/dL (12.0-16.0); LYMPHOCYTES # (AUTO) 0.7 K/uL (1.0-4.8); LYMPHOCYTES % (AUTO) 4.8 % (22.0-44.0); MEAN CORPUSCULAR HEMOGLOBIN 28.7 pg (26.0-34.0); MEAN CORPUSCULAR HGB CONC 32.6 G/dL (31.0-37.0); MEAN CORPUSCULAR VOLUME 88 fL (80-100); MONOCYTES # (AUTO) 0.2 K/uL (0.1-1.0); MONOCYTES % (AUTO) 1.5 % (2.0-9.0); NEUTROPHILS # (AUTO) 14.3 K/uL (1.8-7.7); RED BLOOD CELL COUNT(AUTO) 3.76 MIL/uL (4.00-5.20); RED CELL DISTRIBUTION WIDTH 16.9 % (11.5-14.5); WHITE BLOOD COUNT (AUTO) 15.5 K/uL (4.5-11.0)
[2023-03-22 10:13] LABS: NEUTROPHILS % (AUTO) 92.3 % (40.0-70.0)
[2023-03-22] MEDS ORDERED: BUDESONIDE 0.5 MG/2 ML NEB SOLUTION NEB ONE ×2 (10:15→10:19)
[2023-03-22 10:21] LABS: ALBUMIN 3.6 g/dL (3.4-5.0); CALCIUM, TOTAL 10.2 mg/dL (8.8-10.5); CREATININE 1.17 mg/dL (0.60-1.30); POTASSIUM 4.8 mmol/L (3.5-5.1)
[2023-03-22 10:22] LABS: PLATELET COUNT (AUTO) 302 K/uL (150-450)
[2023-03-22 10:33] LABS: BILIRUBIN,TOTAL 0.3 mg/dL (0.1-1.0); TOTAL PROTEIN, SERUM 8.1 g/dL (6.4-8.2)
[2023-03-22 12:10] LABS: ABG BASE EXCESS -10.2 mmol/L (-2.0-3.0); ABG CARBOXYHEMOGLOBIN 0.3 % (0.0-1.5); ABG HCO3 17.3 mmol/L (22.0-26.0); ABG METHEMOGLOBIN 0.2 % (0.0-1.5); ABG OXYGEN CONTENT 15.3 mL/dL (15.0-23.0); ABG OXYGEN SATURATION 96.7 % (95.0-98.0); ABG OXYHEMOGLOBIN 96.2 % (94.0-100.0); ABG PCO2 29 mmHg (35-45); ABG PH 7.347 (7.35-7.450); ABG TOTAL HEMOGLOBIN 11.2 G/dL (12.0-18.0); PO2, ARTERIAL BG 90.6 mmHg (79.0-87.0); SOURCE, BLOOD GAS ARTERIAL; TEMPERATURE, FAHRENHEIT, BG 98.2 FAHREN (96.0-98.6)
[2023-03-22 12:12] LABS: ABG A-A DIFF O2 103.9 mmHg (10-20.0); O2 DEVICE,BLOOD GAS CANNULA (ROOM AIR); SITE, BLOOD GAS RT BRACHIAL
[2023-03-22 14:03] LABS: ALBUMIN 3.5 g/dL (3.4-5.0); BILIRUBIN,TOTAL 0.2 mg/dL (0.1-1.0); CALCIUM, TOTAL 9.8 mg/dL (8.8-10.5); CREATININE 1.29 mg/dL (0.60-1.30); POTASSIUM 3.4 mmol/L (3.5-5.1); TOTAL PROTEIN, SERUM 7.8 g/dL (6.4-8.2)
[2023-03-22] MEDS: OxyCODONE HCL/ACETAMINOPHEN 5-325 MG TABLET PO PRN (15:16)
[2023-03-22] MEDS: BUDESONIDE 0.5 MG/2 ML NEB SOLUTION NEB SCH ×2 (15:56→22:55)
[2023-03-22] MEDS: AMITRIPTYLINE HCL 25 MG TABLET PO SCH (21:39)
[2023-03-22] MEDS: IPRATROPIUM BROMIDE 0.5 MG/2.5 ML NEB SOLUTION NEB PRN (23:51)
[2023-03-22] MEDS: ALBUTEROL SULFATE 2.5 MG/0.5 ML NEB SOLUTION NEB PRN (23:51)
[2023-03-22] MEDS ORDERED: LORazepam 2 MG/ML VIAL ONE (23:58)
[2023-03-23] VITALS (28 sets, daily range): BP systolic 89–136; BP diastolic 39–83; PULSE 73–106; RESP 14–27; TEMP 97.8–98.9; O2SAT 95–100
[2023-03-23] MEDS ORDERED: LORazepam 2 MG/ML VIAL IVP ONE (00:15)
[2023-03-23] MEDS ORDERED: LORazepam 2 MG/ML VIAL IVP PRN (00:30)
[2023-03-23] MEDS: ALBUTEROL SULFATE 2.5 MG/0.5 ML NEB SOLUTION NEB SCH ×6 (03:51→23:00)
[2023-03-23] MEDS: IPRATROPIUM BROMIDE 0.5 MG/2.5 ML NEB SOLUTION NEB SCH ×6 (03:51→23:00)
[2023-03-23] MEDS: MethylPREDNISolone SOD SUCC 125 MG/2 ML VIAL IVP SCH ×3 (06:25→17:11)
[2023-03-23 06:32] LABS: GLUCOMETER DEV NAME(LOC) 5S.2C; GLUCOSE,POINT OF CARE 164 MG/DL (70-110)
[2023-03-23] MEDS: BUDESONIDE 0.5 MG/2 ML NEB SOLUTION NEB SCH ×3 (07:29→23:00)
[2023-03-23] MEDS: DOCUSATE SODIUM 100 MG CAPSULE PO SCH ×2 (07:51→20:04)
[2023-03-23] MEDS: HEPARIN SODIUM,PORCINE 5,000 UNITS/ML VIAL SQ SCH ×2 (08:12→15:49)
[2023-03-23] MEDS: GABAPENTIN 300 MG CAPSULE PO SCH ×3 (08:13→20:05)
[2023-03-23] MEDS: -LIDODERM PATCH NOTE- MISC SCH (08:13)
[2023-03-23] MEDS: PANTOPRAZOLE SODIUM 40 MG DR TABLET PO SCH (08:13)
[2023-03-23] MEDS: BENZONATATE 100 MG CAPSULE PO SCH ×3 (08:13→20:05)
[2023-03-23] MEDS: LevETIRAcetam 500 MG TABLET PO SCH ×2 (08:13→20:05)
[2023-03-23] MEDS: ATORVASTATIN CALCIUM 40 MG TABLET PO SCH (08:13)
[2023-03-23] MEDS: AmLODIPine BESYLATE 5 MG TABLET PO SCH (08:14)
[2023-03-23] MEDS: MONTELUKAST SODIUM 10 MG TABLET PO SCH (08:14)
[2023-03-23] MEDS: TOPIRAMATE 25 MG TABLET PO SCH ×2 (08:14→20:05)
[2023-03-23 09:09] LABS: BASOPHILS % (AUTO) 0.2 % (0.0-2.0); EOSINOPHILS % (AUTO) 0.2 % (1.0-6.0); HEMATOCRIT 34.8 % (36-46); HEMOGLOBIN 10.6 g/dL (12.0-16.0); LYMPHOCYTES # (AUTO) 0.4 K/uL (1.0-4.8); LYMPHOCYTES % (AUTO) 3.2 % (22.0-44.0); MEAN CORPUSCULAR HGB CONC 30.4 G/dL (31.0-37.0); MEAN CORPUSCULAR VOLUME 95 fL (80-100); MONOCYTES # (AUTO) 0.3 K/uL (0.1-1.0); MONOCYTES % (AUTO) 2.1 % (2.0-9.0); NEUTROPHILS # (AUTO) 12.4 K/uL (1.8-7.7); PLATELET COUNT (AUTO) 270 K/uL (150-450); RED BLOOD CELL COUNT(AUTO) 3.65 MIL/uL (4.00-5.20); RED CELL DISTRIBUTION WIDTH 18.5 % (11.5-14.5); WHITE BLOOD COUNT (AUTO) 13.1 K/uL (4.5-11.0)
[2023-03-23 09:13] LABS: NEUTROPHILS % (AUTO) 94.3 % (40.0-70.0)
[2023-03-23 09:32] LABS: RBC MORPHOLOGY COMMENT NORMAL RBC MORPH
[2023-03-23 09:34] LABS: CALCIUM, TOTAL 9.1 mg/dL (8.8-10.5); CREATININE 1.19 mg/dL (0.60-1.30); MAGNESIUM 2.1 mg/dL (1.80-2.40); PHOSPHORUS 2.8 mg/dL (2.5-4.9); POTASSIUM 3.9 mmol/L (3.5-5.1)
[2023-03-23] MEDS: AMITRIPTYLINE HCL 25 MG TABLET PO SCH (20:05)
[2023-03-23] MEDS: ALBUTEROL SULFATE 2.5 MG/0.5 ML NEB SOLUTION NEB PRN (21:14)
[2023-03-23] MEDS: IPRATROPIUM BROMIDE 0.5 MG/2.5 ML NEB SOLUTION NEB PRN (21:14)
[2023-03-24] VITALS (16 sets, daily range): BP systolic 114–163; BP diastolic 51–96; PULSE 71–100; RESP 14–21; TEMP 98.3–98.8; O2SAT 96–99
[2023-03-24] MEDS: MethylPREDNISolone SOD SUCC 125 MG/2 ML VIAL IVP SCH ×4 (00:21→20:35)
[2023-03-24] MEDS: HEPARIN SODIUM,PORCINE 5,000 UNITS/ML VIAL SQ SCH ×2 (00:21→08:42)
[2023-03-24] MEDS: ALBUTEROL SULFATE 2.5 MG/0.5 ML NEB SOLUTION NEB SCH ×7 (03:00→23:00)
[2023-03-24] MEDS: IPRATROPIUM BROMIDE 0.5 MG/2.5 ML NEB SOLUTION NEB SCH ×7 (03:00→23:00)
[2023-03-24 05:53] LABS: ANION GAP 10 mmol/L (8-16); CALCIUM, TOTAL 8.9 mg/dL (8.8-10.5); CARBON DIOXIDE 24 mmol/L (22-29); CHLORIDE 106 mmol/L (98-107); GLOMERULAR FILTR. RATE CALC > 60 mL/min (>60); GLUCOSE,RANDOM 178 mg/dL (70-110); POTASSIUM 3.9 mmol/L (3.5-5.1); SODIUM SERUM 140 mmol/L (136-145); UREA NITROGEN, BLOOD 33 mg/dL (7-18)
[2023-03-24 05:59] LABS: EOSINOPHILS % (AUTO) 0 % (1.0-6.0); HEMATOCRIT 30.4 % (36-46); HEMOGLOBIN 10.4 g/dL (12.0-16.0); LYMPHOCYTES # (AUTO) 0.4 K/uL (1.0-4.8); LYMPHOCYTES % (AUTO) 3.7 % (22.0-44.0); MEAN CORPUSCULAR HEMOGLOBIN 30.6 pg (26.0-34.0); MEAN CORPUSCULAR HGB CONC 34.2 G/dL (31.0-37.0); MEAN CORPUSCULAR VOLUME 90 fL (80-100); MONOCYTES # (AUTO) 0.3 K/uL (0.1-1.0); NEUTROPHILS # (AUTO) 10.1 K/uL (1.8-7.7); PLATELET COUNT (AUTO) 289 K/uL (150-450); RED BLOOD CELL COUNT(AUTO) 3.39 MIL/uL (4.00-5.20); RED CELL DISTRIBUTION WIDTH 16.9 % (11.5-14.5); WHITE BLOOD COUNT (AUTO) 10.8 K/uL (4.5-11.0)
[2023-03-24 06:04] LABS: NEUTROPHILS % (AUTO) 93.3 % (40.0-70.0)
[2023-03-24] MEDS: BUDESONIDE 0.5 MG/2 ML NEB SOLUTION NEB SCH ×2 (07:36→16:00)
[2023-03-24] MEDS: PANTOPRAZOLE SODIUM 40 MG DR TABLET PO SCH (08:42)
[2023-03-24] MEDS: ETHYL ALCOHOL 62% ANTISEPTIC NASAL SANITIZER 0.6 ML AMPUL NASAL SCH ×2 (08:42→20:32)
[2023-03-24] MEDS: MONTELUKAST SODIUM 10 MG TABLET PO SCH (08:43)
[2023-03-24] MEDS: OxyCODONE HCL/ACETAMINOPHEN 5-325 MG TABLET PO PRN (08:43)
[2023-03-24] MEDS: BENZONATATE 100 MG CAPSULE PO SCH ×3 (08:43→20:48)
[2023-03-24] MEDS: DOCUSATE SODIUM 100 MG CAPSULE PO SCH ×3 (08:44→21:00)
[2023-03-24] MEDS: GABAPENTIN 300 MG CAPSULE PO SCH ×3 (08:44→20:47)
[2023-03-24] MEDS: TOPIRAMATE 25 MG TABLET PO SCH ×2 (08:44→20:33)
[2023-03-24] MEDS: LevETIRAcetam 500 MG TABLET PO SCH ×2 (08:44→20:33)
[2023-03-24] MEDS: ATORVASTATIN CALCIUM 40 MG TABLET PO SCH (08:44)
[2023-03-24] MEDS: -LIDODERM PATCH NOTE- MISC SCH (08:45)
[2023-03-24] MEDS: AmLODIPine BESYLATE 5 MG TABLET PO SCH (08:45)
[2023-03-24] MEDS: LIDOCAINE 5% TRANSDERMAL PATCH TD PRN (09:00)
[2023-03-24] MEDS: AMITRIPTYLINE HCL 25 MG TABLET PO SCH (20:32)
[2023-03-25] VITALS (12 sets, daily range): BP systolic 117–148; BP diastolic 60–95; PULSE 74–95; RESP 10–31; TEMP 98–99.4; O2SAT 96–100
[2023-03-25] MEDS: HEPARIN SODIUM,PORCINE 5,000 UNITS/ML VIAL SQ SCH ×4 (01:22→23:26)
[2023-03-25] MEDS: ALBUTEROL SULFATE 2.5 MG/0.5 ML NEB SOLUTION NEB SCH ×5 (02:58→23:25)
[2023-03-25] MEDS: IPRATROPIUM BROMIDE 0.5 MG/2.5 ML NEB SOLUTION NEB SCH ×5 (02:58→23:25)
[2023-03-25] MEDS: MethylPREDNISolone SOD SUCC 125 MG/2 ML VIAL IVP SCH ×4 (04:32→23:26)
[2023-03-25 08:00] LABS: EOSINOPHILS % (AUTO) 0 % (1.0-6.0); HEMATOCRIT 32.9 % (36-46); HEMOGLOBIN 10.9 g/dL (12.0-16.0); LYMPHOCYTES # (AUTO) 0.3 K/uL (1.0-4.8); LYMPHOCYTES % (AUTO) 2.9 % (22.0-44.0); MEAN CORPUSCULAR HEMOGLOBIN 29.1 pg (26.0-34.0); MEAN CORPUSCULAR HGB CONC 32.9 G/dL (31.0-37.0); MEAN CORPUSCULAR VOLUME 88 fL (80-100); MONOCYTES # (AUTO) 0.3 K/uL (0.1-1.0); MONOCYTES % (AUTO) 2.4 % (2.0-9.0); NEUTROPHILS # (AUTO) 10.8 K/uL (1.8-7.7); PLATELET COUNT (AUTO) 300 K/uL (150-450); RED BLOOD CELL COUNT(AUTO) 3.73 MIL/uL (4.00-5.20); RED CELL DISTRIBUTION WIDTH 16.5 % (11.5-14.5); WHITE BLOOD COUNT (AUTO) 11.4 K/uL (4.5-11.0)
[2023-03-25] MEDS: BUDESONIDE 0.5 MG/2 ML NEB SOLUTION NEB SCH ×3 (08:00→23:25)
[2023-03-25 08:03] LABS: NEUTROPHILS % (AUTO) 94.7 % (40.0-70.0)
[2023-03-25] MEDS: ETHYL ALCOHOL 62% ANTISEPTIC NASAL SANITIZER 0.6 ML AMPUL NASAL SCH ×2 (08:14→21:30)
[2023-03-25] MEDS: LevETIRAcetam 500 MG TABLET PO SCH ×2 (08:15→21:32)
[2023-03-25] MEDS: BENZONATATE 100 MG CAPSULE PO SCH ×3 (08:15→21:32)
[2023-03-25] MEDS: PANTOPRAZOLE SODIUM 40 MG DR TABLET PO SCH (08:17)
[2023-03-25] MEDS: TOPIRAMATE 25 MG TABLET PO SCH ×2 (08:17→21:32)
[2023-03-25] MEDS: ATORVASTATIN CALCIUM 40 MG TABLET PO SCH (08:17)
[2023-03-25] MEDS: AmLODIPine BESYLATE 5 MG TABLET PO SCH (08:17)
[2023-03-25] MEDS: GABAPENTIN 300 MG CAPSULE PO SCH ×3 (08:17→21:32)
[2023-03-25] MEDS: MONTELUKAST SODIUM 10 MG TABLET PO SCH (08:17)
[2023-03-25 08:40] LABS: ANION GAP 8 mmol/L (8-16); CALCIUM, TOTAL 8.9 mg/dL (8.8-10.5); CARBON DIOXIDE 25 mmol/L (22-29); CHLORIDE 107 mmol/L (98-107); CREATININE 0.98 mg/dL (0.60-1.30); GLOMERULAR FILTR. RATE CALC > 60 mL/min (>60); GLUCOSE,RANDOM 140 mg/dL (70-110); POTASSIUM 3.8 mmol/L (3.5-5.1); SODIUM SERUM 140 mmol/L (136-145); UREA NITROGEN, BLOOD 34 mg/dL (7-18)
[2023-03-25] MEDS: DOCUSATE SODIUM 100 MG CAPSULE PO SCH ×2 (09:00→21:00)
[2023-03-25] MEDS: -LIDODERM PATCH NOTE- MISC SCH (10:51)
[2023-03-25] MEDS: AMITRIPTYLINE HCL 25 MG TABLET PO SCH (21:32)
[2023-03-26] VITALS (13 sets, daily range): BP systolic 123–146; BP diastolic 60–89; PULSE 78–95; RESP 18–20; TEMP 97.8–99.2; O2SAT 95–100
[2023-03-26] MEDS: ALBUTEROL SULFATE 2.5 MG/0.5 ML NEB SOLUTION NEB SCH ×6 (03:00→23:00)
[2023-03-26] MEDS: IPRATROPIUM BROMIDE 0.5 MG/2.5 ML NEB SOLUTION NEB SCH ×6 (03:00→23:00)
[2023-03-26] MEDS: MethylPREDNISolone SOD SUCC 125 MG/2 ML VIAL IVP SCH ×3 (04:11→16:21)
[2023-03-26] MEDS: BUDESONIDE 0.5 MG/2 ML NEB SOLUTION NEB SCH ×2 (07:21→15:00)
[2023-03-26] MEDS: HEPARIN SODIUM,PORCINE 5,000 UNITS/ML VIAL SQ SCH ×3 (08:40→23:29)
[2023-03-26] MEDS: AmLODIPine BESYLATE 5 MG TABLET PO SCH (08:42)
[2023-03-26] MEDS: MONTELUKAST SODIUM 10 MG TABLET PO SCH (08:42)
[2023-03-26] MEDS: BENZONATATE 100 MG CAPSULE PO SCH ×3 (08:42→20:31)
[2023-03-26] MEDS: LevETIRAcetam 500 MG TABLET PO SCH ×2 (08:42→20:30)
[2023-03-26] MEDS: TOPIRAMATE 25 MG TABLET PO SCH ×2 (08:43→20:31)
[2023-03-26] MEDS: GABAPENTIN 300 MG CAPSULE PO SCH ×3 (08:43→20:30)
[2023-03-26] MEDS: ATORVASTATIN CALCIUM 40 MG TABLET PO SCH (08:43)
[2023-03-26] MEDS: PANTOPRAZOLE SODIUM 40 MG DR TABLET PO SCH (08:43)
[2023-03-26] MEDS: LIDOCAINE 5% TRANSDERMAL PATCH TD PRN (08:44)
[2023-03-26] MEDS: ETHYL ALCOHOL 62% ANTISEPTIC NASAL SANITIZER 0.6 ML AMPUL NASAL SCH ×2 (08:48→20:31)
[2023-03-26] MEDS: DOCUSATE SODIUM 100 MG CAPSULE PO SCH ×2 (09:00→20:39)
[2023-03-26] MEDS: -LIDODERM PATCH NOTE- MISC SCH (09:12)
[2023-03-26] MEDS: OxyCODONE HCL/ACETAMINOPHEN 5-325 MG TABLET PO PRN ×2 (09:16→20:31)
[2023-03-26 12:03] LABS: GLUCOMETER DEV NAME(LOC) 5N.1C; GLUCOSE,POINT OF CARE 238 MG/DL (70-110)
[2023-03-26 12:06] LABS: GLUCOMETER DEV NAME(LOC) 5N.2C; GLUCOSE,POINT OF CARE 204 MG/DL (70-110)
[2023-03-26] MEDS: AMITRIPTYLINE HCL 25 MG TABLET PO SCH (20:31)
[2023-03-26] MEDS: MethylPREDNISolone SOD SUCC 40 MG/ML VIAL IVP SCH (23:28)
[2023-03-27] VITALS (8 sets, daily range): BP systolic 116–142; BP diastolic 62–80; PULSE 79–93; RESP 18–20; TEMP 98–98.2; O2SAT 90–100
[2023-03-27] MEDS: ALBUTEROL SULFATE 2.5 MG/0.5 ML NEB SOLUTION NEB SCH ×4 (03:00→14:19)
[2023-03-27] MEDS: IPRATROPIUM BROMIDE 0.5 MG/2.5 ML NEB SOLUTION NEB SCH ×4 (03:00→14:19)
[2023-03-27] MEDS: MethylPREDNISolone SOD SUCC 40 MG/ML VIAL IVP SCH ×2 (05:03→13:44)
[2023-03-27] MEDS: BUDESONIDE 0.5 MG/2 ML NEB SOLUTION NEB SCH ×3 (06:52→14:19)
[2023-03-27] MEDS: HEPARIN SODIUM,PORCINE 5,000 UNITS/ML VIAL SQ SCH (08:56)
[2023-03-27] MEDS: BENZONATATE 100 MG CAPSULE PO SCH (08:56)
[2023-03-27] MEDS: LevETIRAcetam 500 MG TABLET PO SCH (08:56)
[2023-03-27] MEDS: ATORVASTATIN CALCIUM 40 MG TABLET PO SCH (08:56)
[2023-03-27] MEDS: TOPIRAMATE 25 MG TABLET PO SCH (08:57)
[2023-03-27] MEDS: MONTELUKAST SODIUM 10 MG TABLET PO SCH (08:57)
[2023-03-27] MEDS: PANTOPRAZOLE SODIUM 40 MG DR TABLET PO SCH (08:57)
[2023-03-27] MEDS: GABAPENTIN 300 MG CAPSULE PO SCH (08:57)
[2023-03-27] MEDS: -LIDODERM PATCH NOTE- MISC SCH (08:58)
[2023-03-27] MEDS: AmLODIPine BESYLATE 5 MG TABLET PO SCH (08:58)
[2023-03-27] MEDS: ETHYL ALCOHOL 62% ANTISEPTIC NASAL SANITIZER 0.6 ML AMPUL NASAL SCH (08:59)
[2023-03-27] MEDS: DOCUSATE SODIUM 100 MG CAPSULE PO SCH (09:00)
[2023-03-27] MEDS ORDERED: PANT-31 PO (13:10)
[2023-03-27] MEDS ORDERED: PRED-554 PO (13:15)
== END 2023-03-27 14:33 | disposition home or self-care (01) | DRG 189 ==
LOC: EMS 07:30 → AHU 09:30 → 5S 10:38 → ICUN 03-22 10:00 → ICU 03-22 15:55 → 5S 03-25 15:35
PROVIDERS: ADMIT Hospitalist; ATTEND Hospitalist
PROC: 5A09357 Assistance with Respiratory Ventilation, Less than 24 Consecutive Hours, Continuous Positive Airway Pressure (ICD-10-PCS; principal; 2023-03-21)
PROC: 5A09357 Assistance with Respiratory Ventilation, Less than 24 Consecutive Hours, Continuous Positive Airway Pressure (ICD-10-PCS; 2023-03-22)
PROC: 5A09357 Assistance with Respiratory Ventilation, Less than 24 Consecutive Hours, Continuous Positive Airway Pressure (ICD-10-PCS; 2023-03-23)
PROC: 5A09357 Assistance with Respiratory Ventilation, Less than 24 Consecutive Hours, Continuous Positive Airway Pressure (ICD-10-PCS; 2023-03-24)
DX: J96.01 Acute respiratory failure with hypoxia (principal); J44.1 Chronic obstructive pulmonary disease with (acute) exacerbation; Z68.42 Body mass index [BMI] 45.0-49.9, adult; F41.9 Anxiety disorder, unspecified; I10 Essential (primary) hypertension; K21.9 Gastro-esophageal reflux disease without esophagitis; F31.9 Bipolar disorder, unspecified; M19.90 Unspecified osteoarthritis, unspecified site; R56.9 Unspecified convulsions; D64.9 Anemia, unspecified; E11.9 Type 2 diabetes mellitus without complications; E66.01 Morbid (severe) obesity due to excess calories; Z20.822 Contact with and (suspected) exposure to COVID-19; G47.33 Obstructive sleep apnea (adult) (pediatric); Z96.641 Presence of right artificial hip joint; I25.10 Atherosclerotic heart disease of native coronary artery without angina pectoris; Z96.659 Presence of unspecified artificial knee joint; I25.2 Old myocardial infarction; Z79.899 Other long term (current) drug therapy; Z88.1 Allergy status to other antibiotic agents; Z90.49 Acquired absence of other specified parts of digestive tract; Z98.51 Tubal ligation status; Z82.49 Family history of ischemic heart disease and other diseases of the circulatory system; Z72.0 Tobacco use
CPT/HCPCS: 36600; 71045; 80048; 80053; 82550; 82805; 82962; 83735; 83880; 84100; 84484; 85025; 87081; 87804; 93005; 94640; 94644; 94645; 94660; 99291; J1644; J2060; J2920; J2930; Q9967; 36415-L1; 36415-TC; J7613

== ENCOUNTER → 2023-05-31 | Outpatient (CLI) | payer MEDICARE, MEDICAID ==
[~2023-05-31] MED LIST changes: +ALBU18HF12 IH; +BACTDSB PO; +CIPR250T6 PO; +FLUT1BLS3 IH; +HYDR-4072 PO; +LEVE250T4 PO; +METH4TAB3 PO; +METO25XL PO; +OXYC-490 PO; +PANT-31 PO; +PHEN-846 PO; +PRED-554 PO; -TRAM-559 PO; +TRAM50TA5 PO
[2023-05-31 12:08] VITALS: BP 121/72; PULSE 79; RESP 18; TEMP 98.2; O2SAT 97
[2023-05-31 13:50] LABS: APPEARANCE,URINE CLEAR (CLEAR); BILIRUBIN,URINE NEGATIVE (NEGATIVE); COLOR,URINE YELLOW (YELLOW); GLUCOSE, URINE (UA) NEGATIVE (NEGATIVE); KETONES,URINE NEGATIVE (NEGATIVE); LEUKOCYTE ESTERASE ,URINE SMALL (NEGATIVE); NITRATE,URINE NEGATIVE (NEGATIVE); OCCULT BLOOD,URINE NEGATIVE (NEGATIVE); PH,URINE 7.5 (5.0-8.0); PROTEIN,URINE TRACE mg/dL (NEGATIVE); SPECIFIC GRAVITIY, URINE 1.026 (1.003-1.030)
[2023-05-31 14:07] LABS: BACTERIA,URINE None Seen /HPF (None Seen); RBC,URINE None Seen /HPF (0-2); SQUAMOUS EPITHELIAL CELL,UR Few /LPF (None Seen); URIC ACID CRYSTALS,URINE Few /LPF (None Seen); WBC,URINE 0-2 /HPF (0-5)
== END | disposition still patient (30) ==
LOC: SRCNTR 11:56
PROVIDERS: ATTEND Hospitalist
DX: I10 Essential (primary) hypertension (principal); J44.9 Chronic obstructive pulmonary disease, unspecified; K21.9 Gastro-esophageal reflux disease without esophagitis; F41.9 Anxiety disorder, unspecified; R56.9 Unspecified convulsions; I25.10 Atherosclerotic heart disease of native coronary artery without angina pectoris; I25.2 Old myocardial infarction; E66.9 Obesity, unspecified; F31.9 Bipolar disorder, unspecified; M19.90 Unspecified osteoarthritis, unspecified site; Z79.899 Other long term (current) drug therapy
CPT/HCPCS: 81001; 87086; 87186

== ENCOUNTER → 2023-06-03 | Outpatient (CLI) | payer MEDICARE, MEDICAID ==
[~2023-06-03] MED LIST changes: -AMLO-257 PO; -CIPR250T6 PO; -HYDR-4072 PO; -LEVE250T4 PO; -LEVE500T8 PO; -METO25XL PO; -MONT-40 PO; -PANT-31 PO; -PRED-554 PO; -TOPI-97 PO; -TRAM50TA5 PO
== END | disposition home or self-care (01) ==
LOC: SRCNTR 09:39
PROVIDERS: ATTEND Internal Medicine
DX: J44.1 Chronic obstructive pulmonary disease with (acute) exacerbation (principal); G47.33 Obstructive sleep apnea (adult) (pediatric); E66.9 Obesity, unspecified
CPT/HCPCS: Q3014

== ENCOUNTER → 2023-07-03 | Outpatient (CLI) | payer MEDICARE, MEDICAID ==
[~2023-07-03] VITALS: Ht 177.8 cm; Wt 111.0 kg
[~2023-07-03] MED LIST changes: +CIPR250T6 PO; +HYDR-4072 PO; +LEVE250T4 PO; +METO25XL PO
[2023-07-03 14:14] VITALS: BP 123/85; PULSE 94; RESP 21; TEMP 98.8; O2SAT 96
[2023-07-03 16:07] LABS: APPEARANCE,URINE CLEAR (CLEAR); BILIRUBIN,URINE NEGATIVE (NEGATIVE); COLOR,URINE YELLOW (YELLOW); GLUCOSE, URINE (UA) NEGATIVE (NEGATIVE); KETONES,URINE NEGATIVE (NEGATIVE); LEUKOCYTE ESTERASE ,URINE LARGE (NEGATIVE); NITRATE,URINE NEGATIVE (NEGATIVE); OCCULT BLOOD,URINE NEGATIVE (NEGATIVE); PROTEIN,URINE 30-70 mg/dL (NEGATIVE); SPECIFIC GRAVITIY, URINE 1.034 (1.003-1.030)
[2023-07-03 16:29] LABS: RBC,URINE None Seen /HPF (0-2)
[2023-07-03 16:30] LABS: BACTERIA,URINE Moderate /HPF (None Seen)
[2023-07-03 16:31] LABS: CALCIUM OXALATE CRYSTALS,UR Few /LPF (None Seen)
[2023-07-03 16:33] LABS: RENAL EPITHELIAL CELLS,URINE Few /LPF (None Seen)
== END | disposition home or self-care (01) ==
LOC: SRCNTR 13:26
PROVIDERS: ATTEND Hospitalist
DX: J44.9 Chronic obstructive pulmonary disease, unspecified (principal); I10 Essential (primary) hypertension; F41.1 Generalized anxiety disorder
CPT/HCPCS: 81001; 87086; 87186; G0463

== ENCOUNTER 2023-07-15 21:13 | Inpatient (IN) | payer MEDICARE, OTHER ==
[~2023-07-15] VITALS: Ht 177.8 cm; Wt 119.7 kg
[~2023-07-15 21:13] MED LIST changes: -CIPR250T6 PO; -HYDR-4072 PO; -LEVE250T4 PO; -METO25XL PO
[2023-07-15 22:12] LABS: BASOPHILS % (AUTO) 0.4 % (0.0-2.0); EOSINOPHILS % (AUTO) 3.8 % (1.0-6.0); HEMATOCRIT 33.1 % (36-46); HEMOGLOBIN 10.9 g/dL (12.0-16.0); LYMPHOCYTES # (AUTO) 1.5 K/uL (1.0-4.8); LYMPHOCYTES % (AUTO) 23.1 % (22.0-44.0); MEAN CORPUSCULAR HGB CONC 33.1 G/dL (31.0-37.0); MEAN CORPUSCULAR VOLUME 91 fL (80-100); MONOCYTES # (AUTO) 0.6 K/uL (0.1-1.0); NEUTROPHILS # (AUTO) 4.2 K/uL (1.8-7.7); NEUTROPHILS % (AUTO) 63.7 % (40.0-70.0); PLATELET COUNT (AUTO) 231 K/uL (150-450); RED BLOOD CELL COUNT(AUTO) 3.65 MIL/uL (4.00-5.20); RED CELL DISTRIBUTION WIDTH 15.6 % (11.5-14.5); WHITE BLOOD COUNT (AUTO) 6.6 K/uL (4.5-11.0)
[2023-07-15] MEDS ORDERED: 0.9% SODIUM CHLORIDE 10 ML SYRINGE IVP PRN (22:15)
[2023-07-15 22:22] LABS: ANION GAP 10 mmol/L (8-16); CALCIUM, TOTAL 9.2 mg/dL (8.8-10.5); CARBON DIOXIDE 26 mmol/L (22-29); CHLORIDE 107 mmol/L (98-107); CREATININE 0.96 mg/dL (0.60-1.30); GLOMERULAR FILTR. RATE CALC > 60 mL/min (>60); GLUCOSE,RANDOM 101 mg/dL (70-110); POTASSIUM 3.4 mmol/L (3.5-5.1); SODIUM SERUM 143 mmol/L (136-145); UREA NITROGEN, BLOOD 22 mg/dL (7-18)
[2023-07-15 22:23] VITALS: PULSE 78; RESP 20; O2SAT 98
[2023-07-15] MEDS: IPRATROPIUM BROMIDE 0.5 MG/2.5 ML NEB SOLUTION NEB ONE (22:23)
[2023-07-15] MEDS: ALBUTEROL SULFATE 2.5 MG/0.5 ML NEB SOLUTION NEB ONE (22:23)
[2023-07-15 22:28] LABS: ALANINE AMINOTRANSFERASE 18 U/L (12-78); ALBUMIN 3.1 g/dL (3.4-5.0); ALKALINE PHOSPHATASE 96 U/L (46-116); ASPARTATE AMINOTRANSFERASE 20 U/L (15-37); BILIRUBIN,TOTAL 0.2 mg/dL (0.1-1.0); TOTAL PROTEIN, SERUM 6.8 g/dL (6.4-8.2)
[2023-07-15 22:38] VITALS: PULSE 77; RESP 20; O2SAT 99
[2023-07-15 22:41] LABS: PROTHROMBIN TIME 10.2 SEC (9.4-11.6)
[2023-07-15] MEDS: CefTRIAXone 1 GM/DEXTROSE 50 ML IV ONE (22:43)
[2023-07-15] MEDS: SODIUM CHLORIDE 0.9% 2,050 ML IV ONE (22:43)
[2023-07-15] MEDS: LORazepam 2 MG/ML VIAL IVP ONE (22:43)
[2023-07-15] MEDS: LevETIRAcetam 1,000 MG in DEXTROSE 5%-WATER 100 ML IV ONE (22:43)
[2023-07-15 22:48] LABS: LACTIC ACID 1.4 mmol/L (0.4-2.0)
[2023-07-15 22:49] LABS: TROPONIN I-HIGH SENSITIVITY 6 ng/L (<51)
[2023-07-15 23:15] LABS: B-TYPE NATRIURETIC PEPTIDE 7 pg/mL (0-100)
[2023-07-15 23:20] LABS: INFLUENZA A-RTPCR,COMBO NEGATIVE (NEGATIVE); INFLUENZA B-RTPCR,COMBO NEGATIVE (NEGATIVE); RESPIRATORY SYNCYTIAL VRS-PCR NEGATIVE (NEGATIVE); SARS COVID19 RTPCR, COMBO NEGATIVE (NEGATIVE)
[2023-07-15] MEDS ORDERED: ACETAMINOPHEN 325 MG TABLET PO PRN (23:45)
[2023-07-15] MEDS ORDERED: MAGNESIUM HYDROXIDE SUSPENSION 30 ML UDCUP PO PRN (23:45)
[2023-07-15] MEDS ORDERED: ONDANSETRON HCL 4 MG/2 ML VIAL IVP PRN (23:45)
[2023-07-15] MEDS ORDERED: POTASSIUM CHL 10 MEQ/WATER 50 ML IV PRN (23:45)
[2023-07-15] MEDS: HEPARIN SODIUM,PORCINE 5,000 UNITS/ML VIAL SQ SCH (23:51)
[2023-07-16] MEDS: MethylPREDNISolone SOD SUCC 125 MG/2 ML VIAL IVP SCH
[2023-07-16] MEDS: POTASSIUM CHLORIDE 20 MEQ ER TABLET PO ONE (02:13)
[2023-07-16] MEDS: MethylPREDNISolone SOD SUCC 125 MG/2 ML VIAL IVP ONE (02:14)
[2023-07-16 08:25] VITALS: BP 123/72; PULSE 78; RESP 20; TEMP 97.8
[2023-07-16] MEDS: LevETIRAcetam 500 MG TABLET PO SCH (08:46)
[2023-07-16] MEDS: FAMOTIDINE 20 MG TABLET PO SCH (08:46)
[2023-07-16] MEDS: LORazepam 2 MG/ML VIAL IVP PRN (12:27)
[2023-07-16 14:46] VITALS: BP 133/61; PULSE 80; RESP 18; TEMP 97.9
[2023-07-16 16:08] VITALS: BP 131/64; PULSE 83; RESP 18; TEMP 97.9
[2023-07-16] MEDS: POTASSIUM CHLORIDE 20 MEQ ER TABLET PO PRN (16:11)
[2023-07-16 19:54] VITALS: BP 144/70; PULSE 90; RESP 19; TEMP 98
[2023-07-16] MEDS: OxyCODONE HCL/ACETAMINOPHEN 5-325 MG TABLET PO PRN (20:54)
[2023-07-16] MEDS ORDERED: 0.9% SODIUM CHLORIDE 5 ML NEB SOLUTION NEB ONE (23:07)
[2023-07-16] MEDS: ALBUTEROL SULFATE 2.5 MG/0.5 ML NEB SOLUTION NEB PRN (23:09)
[2023-07-16 23:10] VITALS: PULSE 91; RESP 20; O2SAT 97
[2023-07-16 23:20] VITALS: PULSE 103; RESP 20; O2SAT 96
[2023-07-17 00:31] VITALS: BP 128/70; PULSE 97; RESP 19; TEMP 98.5
[2023-07-17 04:54] VITALS: BP 136/72; PULSE 94; RESP 17; TEMP 98
[2023-07-17 08:09] VITALS: BP 135/86; PULSE 97; RESP 18; TEMP 98
[2023-07-17] MEDS ORDERED: LEVE250T4 PO (10:35)
[2023-07-17] MEDS ORDERED: CIPR250T6 PO (11:11)
[2023-07-17 11:12] VITALS: BP 143/76; PULSE 83; RESP 18; TEMP 98
== END 2023-07-17 13:10 | disposition home or self-care (01) | DRG 101 ==
LOC: EMS 21:13 → AHU 23:40 → 6S 07-16 07:01 → 5N 07-16 14:15
PROVIDERS: ADMIT Internal Medicine; ATTEND Internal Medicine
DX: G40.909 Epilepsy, unspecified, not intractable, without status epilepticus (principal); J44.1 Chronic obstructive pulmonary disease with (acute) exacerbation; E11.9 Type 2 diabetes mellitus without complications; I10 Essential (primary) hypertension; F41.9 Anxiety disorder, unspecified; F17.200 Nicotine dependence, unspecified, uncomplicated; E87.6 Hypokalemia; Z96.651 Presence of right artificial knee joint; Z20.822 Contact with and (suspected) exposure to COVID-19; E66.9 Obesity, unspecified; K21.9 Gastro-esophageal reflux disease without esophagitis; Z96.641 Presence of right artificial hip joint; Z91.148 Patient's other noncompliance with medication regimen for other reason; Z90.49 Acquired absence of other specified parts of digestive tract; Z98.51 Tubal ligation status; Z82.5 Family history of asthma and other chronic lower respiratory diseases; Z82.49 Family history of ischemic heart disease and other diseases of the circulatory system; Z88.1 Allergy status to other antibiotic agents; Z79.899 Other long term (current) drug therapy; Z68.37 Body mass index [BMI] 37.0-37.9, adult
CPT/HCPCS: 0241U; 70450; 71045; 80053; 83605; 83880; 84132; 84145; 84484; 85025; 85610; 87040; 93005; 94640; 99291; G0378; J0696; J0712; J1644; J2060; J2930; J7030; J7060; 36415-L1; 36415-TC; J7613

== ENCOUNTER → 2023-08-27 | Outpatient (CLI) | payer MEDICARE, OTHER ==
[~2023-08-27] MED LIST changes: -AMIT25TA9 PO; +AZIT250T9 PO; -BACTDSB PO; -BENZ-227 PO; +CIPR250T6 PO; -FLUT1BLS3 IH; +HYDR-4072 PO; +LEVE250T4 PO; +LEVE500T8 PO; -METH4TAB3 PO; +METO25XL PO; -OXYC-490 PO; -PHEN-846 PO; +PRED-729 PO; -[UNRECOGNIZED DRUG - CODE] TD
[2023-08-27 15:28] VITALS: BP 146/84; PULSE 83; RESP 20; TEMP 97.6; O2SAT 96
== END | disposition home or self-care (01) ==
LOC: SRCNTR 15:10
PROVIDERS: ATTEND Internal Medicine
DX: R07.89 Other chest pain (principal); F41.9 Anxiety disorder, unspecified; G89.29 Other chronic pain; M19.90 Unspecified osteoarthritis, unspecified site; I10 Essential (primary) hypertension; J44.9 Chronic obstructive pulmonary disease, unspecified; I77.819 Aortic ectasia, unspecified site; Z79.899 Other long term (current) drug therapy; Z88.8 Allergy status to other drugs, medicaments and biological substances
CPT/HCPCS: G0463; Z7500

== ENCOUNTER 2024-01-18 14:17 | Emergency (ER) | payer MEDICARE, OTHER ==
[~2024-01-18] VITALS: Ht 177.8 cm; Wt 122.7 kg
[~2024-01-18 14:17] MED LIST changes: -ALBU2TAB46 PO; +AMOX-457 PO; -AZIT250T9 PO; -CIPR250T6 PO; -LEVE250T4 PO
[2024-01-18 14:24] VITALS: TEMP 98.3
[2024-01-18] MEDS ORDERED: LEVE10006 PO (15:21)
[2024-01-18] MEDS ORDERED: MELO-106 PO ×2 (15:21→16:04)
[2024-01-18] MEDS ORDERED: OXYC-618 PO (15:21)
[2024-01-18] MEDS ORDERED: NALO4SPR NASAL (15:21)
[2024-01-18] MEDS ORDERED: GABA-534 PO (15:21)
[2024-01-18] MEDS ORDERED: TOPI-97 PO (15:21)
[2024-01-18] MEDS ORDERED: AMIT25TA9 PO (15:21)
[2024-01-18] MEDS: OxyCODONE HCL/ACETAMINOPHEN 5-325 MG TABLET PO ONE (15:24)
[2024-01-18] MEDS: IBUPROFEN 600 MG TABLET PO ONE (15:24)
[2024-01-18] MEDS: GABAPENTIN 100 MG CAPSULE PO ONE (15:24)
[2024-01-18 15:47] VITALS: BP 132/76; PULSE 88; RESP 16; O2SAT 96
[2024-01-18] MEDS ORDERED: PERCT PO (16:04)
[2024-01-18] MEDS ORDERED: GABA-1181 PO (16:04)
== END 2024-01-18 16:50 | disposition home or self-care (01) ==
LOC: EMS 14:20
DX: M50.80 Other cervical disc disorders, unspecified cervical region (principal); J44.9 Chronic obstructive pulmonary disease, unspecified; K21.9 Gastro-esophageal reflux disease without esophagitis; E11.9 Type 2 diabetes mellitus without complications; I10 Essential (primary) hypertension; Z88.8 Allergy status to other drugs, medicaments and biological substances
CPT/HCPCS: 99284; Z7502; Z7610